=== PATIENT | male | born 1955 | race Caucasian/White ===

== ENCOUNTER → 2019-01-31 | Outpatient (CLI) | payer OTHER ==
--- NOTE | 2019-01-31 20:59 | CONS ---
CONSULTATION REASON FOR CONSULTATION: Sleep apnea. This 63-year-old male patient is coming in for sleep apnea evaluation. The patient used to live in [place] and currently is back in [place]. He was diagnosed having Parkinson's disease under the care of Dr. Mayte Branham. He is on a combination of Mirapex and Sinemet regarding his Parkinson's disease. He has no dementia. He has resting tremors. No issues with mobility or falls. He has been feeling fatigued. He goes to bed around 1 a.m. and wakes up at 6:30 a.m. in the morning, averaging around 5- 6 hours of sleep. He does not take any naps during the day. Occasionally he dozes off during the day, especially if it is a quite afternoon. He snores. He has been told that he moans during the night, and his cannot sleep due to him snoring and moaning. He has been having this issue for many years. No sleeptalking. No restlessness in the lower extremities. Denies waking up gasping for air. No choking. No palpitations or heartburn. PAST MEDICAL HISTORY: Includes Parkinson's disease and hypertension. PAST SURGICAL HISTORY: Includes cholecystectomy and tonsillectomy. DRUG ALLERGIES: NOT KNOWN. OUTPATIENT MEDICATION LIST: Includes Mirapex, Sinemet and lisinopril. SOCIAL HISTORY: He smokes a cigar. No history of alcoholism. No history of IV drugs. FAMILY HISTORY: Mother with obstructive sleep apnea in addition to coronary artery disease and diabetes mellitus. Father with dementia. REVIEW OF SYSTEMS: Fourteen-point review of systems was done. Positive findings are all mentioned in the history of present illness. He has no insomnia. No symptoms to suggest any violent behavior or aggressive behavior at night time. As such, possibility of REM behavioral disorder is less likely. No symptoms to suggest restless legs syndrome. He does not kick at night time. He does not fall asleep while driving. Occasional naps during the day. He sleeps on his side. No TV in the bedroom. Weight is stable at around 265 to 270. PHYSICAL EXAMINATION: BP is 144/76, pulse 68, respirations 16. Weight is 273, height 5 feet 8 inches, BMI is 46.9. Neck size is 18-1/2 inches. Temperature 97.7. Saturation 97% on room air. GENERAL APPEARANCE: Calm, comfortable. Head is atraumatic, normocephalic. NECK: Supple. There is no JVD. No goiter or neck masses. Mallampati class IV. LUNGS: Clear to auscultation. HEART: Heart sounds are regular rate and rhythm. Normal S1, S2. No S3, S4. No murmurs. ABDOMEN: Soft, nontender. EXTREMITIES: No edema. No cyanosis or clubbing. NEUROLOGIC: Alert and oriented x3. No focal neurological deficits. PSYCHIATRIC: Negative for anxiety or depression. IMPRESSION: 1. Loud snoring. 2. Hypersomnia; [place] score of 16. 3. Obesity; body mass index of 46.9. 4. Parkinson's disease. 5. Hypertension. PLAN: 1. Weight loss. 2. Proceed with a screening polysomnogram. Conditions that can affect the patient's sleep quality in Parkinson's disease include sleep apnea, restless legs syndrome and REM behavioral disorder. Nevertheless, in this patient the main concern is obstructive sleep apnea. 3. Implement good sleep hygiene measures. 4. Extend sleep hours to an average of 7 hours per night, if possible. 5. Will make further recommendations based on results of the sleep study. MMODL / IJN: [id number] /
== END ==
LOC: SLEEP 13:33
PROVIDERS: ATTEND Internal Medicine Critical Care Medicine
DX: G47.10 Hypersomnia, unspecified (principal); R06.83 Snoring; E66.9 Obesity, unspecified; G20 Parkinson's disease; I10 Essential (primary) hypertension; F17.290 Nicotine dependence, other tobacco product, uncomplicated; Z79.899 Other long term (current) drug therapy; Z90.49 Acquired absence of other specified parts of digestive tract; Z68.42 Body mass index [BMI] 45.0-49.9, adult; Z90.89 Acquired absence of other organs
CPT/HCPCS: 99211

== ENCOUNTER → 2019-10-19 | Outpatient (CLI) | payer BC ==
--- NOTE | 2019-10-19 14:51 | PN ---
PROGRESS NOTE DATE OF SERVICE: 10/19/2019 A 64-year-old gentleman who has been [facility] for treatment of obstructive sleep apnea-hypopnea syndrome. Recently, patient had home sleep apnea test which showed moderate obstructive sleep apnea with apnea-hypopnea index 22 with oxygen desaturation to 73%. The patient underwent CPAP titration and on the pressure 9, respiration was normalized. Then I prescribed the patient's CPAP unit. He received the unit and started to use it and basically most of the night patient is able to use it without significant problem. Sometimes he feels that his nasal mask may be not 100% fitted. Today is his first visit after he started to use CPAP equipment, he feels better with the machine. He likes machine. He sleeps better at night and feel better during the day. [place] Sleepiness Scale today is 5. I checked CPAP unit. CPAP pressure is 9 cm of water, usage 29/30 nights and 22/30 nights more than 4 hours with average usage 5.7 hours which is good compliance. Leak is 25 L/minute. Apnea-hypopnea index is only 0.7, which is absolutely perfect. MEDICATIONS: Sinemet, lisinopril, hydrochlorothiazide, Celexa, Xanax, Advil as needed. PHYSICAL EXAM: Patient in no distress, BP 160/82, HR 64, RR 16, weight 260.0, temp 97, oxygen saturation at room air 96%. OROPHARYNX: Low position of soft palate, Mallampati 3. ABDOMEN: Slightly obese. EXTREMITIES: Some tremor of fingers. NECK: Supple, no JVD. Thyroid is not palpable. LUNGS: Clear to percussion and to auscultation. Good air exchange. No wheezing or rhonchi. HEART: S1, S2 regular. No murmurs, gallops, or rubs. STATION ENGINEER MAIN LINE: Awake, alert, and oriented X3. Cranial nerves 2 to 7 intact. There is no fasciculation or atrophy. noted. No focal deficits observed. IMPRESSION: 1. Obstructive sleep apnea-hypopnea syndrome on full control with CPAP. Patient demonstrated great compliance with treatment benefitting from treatment. 2. History of Parkinson's disease. 3. Obesity. 4. Hypertension. PLAN: 1. Patient will continue to use CPAP equipment every night for the whole night. 2. I will maintain all necessary prescriptions including mask, tube, filters. 3. Prescription to try nasal pillow mask. 4. Losing weight. 5. No driving if feeling sleepiness. Thank you very much for allowing me to participate in the management of your patient. Sincerely, Prashanth Samuel MD, PhD, FAASM Diplomat of [place] [employer] [place] [employer] Store Protection Specialist of [facility] [place] MMKRISTIN / HARRY: [id number] /
== END | disposition home or self-care (01) ==
LOC: SLEEP 13:09
PROVIDERS: ATTEND Internal Medicine
DX: G47.33 Obstructive sleep apnea (adult) (pediatric) (principal); E66.9 Obesity, unspecified; I10 Essential (primary) hypertension; Z86.69 Personal history of other diseases of the nervous system and sense organs; Z79.899 Other long term (current) drug therapy

== ENCOUNTER 2020-10-11 16:34 | Observation (INO) | payer BC, MEDICARE, OTHER ==
--- NOTE | 2020-10-11 17:23 | XR ---
EXAMINATION TYPE: XR elbow complete LT DATE OF EXAM: 10/11/2020 COMPARISON: NONE HISTORY: Elbow pain TECHNIQUE: 3 views FINDINGS: There is spurring on the olecranon process of the ulna. There is soft tissue swelling over the olecranon process. There is probably a nondisplaced fracture of the olecranon process spur. There is no evidence of elbow joint effusion. Elbow joint spaces are fairly normal. IMPRESSION: Large olecranon process spur formation with probable nondisplaced fracture. Soft tissue s welling.
[2020-10-11] MEDS ORDERED: NALOXONE 0.4 MG/ML 1 ML VIAL IV PRN (18:07)
--- NOTE | 2020-10-11 18:07 | ED ---
Upper Extremity HPI - General Chief Complaint: Extremity Injury, Upper Stated Complaint: L Elbow Injury Time Seen by Provider: 10/11/20 16:51 Source: patient Mode of arrival: ambulatory Limitations: no limitations - History of Present Illness Initial Comments: This is a 65-year-old male with a history of Parkinson's disease who fell about a week ago when he has left elbow he was found by his family doctor to have a fracture of the spur on his olecranon. He did have been draining since then intermittently neck a better in spite of antibiotics. He denies any overt fevers chills or sweats he does have persistent however swelling to the area with intermittent episodes of drainage. He was sent in for evaluation by orthopedics. No other injury reported this time no other complaints MD Complaint: Injury to:: left, elbow - Related Data Allergies Allergy/AdvReac Type Severity Reaction Status Date / Time No Known Allergies Allergy Verified 10/11/20 16:48 Review of Systems ROS Statement: Those systems with pertinent positive or pertinent negative responses have been documented in the HPI. ROS Other: All systems not noted in ROS Statement are negative. Past Medical History Past Medical History: Hypertension Additional Past Medical History / Comment(s): parkinsons History of Any Multi-Drug Resistant Organisms: None Reported Past Surgical History: Cholecystectomy, Hernia Repair Past Psychological History: Anxiety Smoking Status: Current some day smoker Past Alcohol Use History: Daily Past Drug Use History: None Reported General Exam - General Exam Comments Initial Comments: this is a well-developed well-nourished awake alert oriented 3 male Limitations: no limitations General appearance: alert, in no apparent distress Head exam: Present: atraumatic, normocephalic, normal inspection Eye exam: Present: normal appearance, PERRL, EOMI. Absent: scleral icterus, conjunctival injection, periorbital swelling ENT exam: Present: normal exam, mucous membranes moist Neck exam: Present: normal inspection, full ROM. Absent: tenderness, meningismus, lymphadenopathy Respiratory exam: Absent: respiratory distress, wheezes, rales, rhonchi, stridor Cardiovascular Exam: Present: regular rate, normal rhythm. Absent: systolic murmur, diastolic murmur, rubs, gallop, clicks GI/Abdominal exam: Present: soft, normal bowel sounds. Absent: distended, tenderness, guarding, rebound, rigid Extremities exam: Present: full ROM, tenderness (gemmation left elbow reveals a erythematous area with swelling over the olecranon in the left there is open wounds no drainage at this time there is fluctuance about the area increased localized temperature and erythema no lymphadenopathy proximal however no tenderness palpation of the axilla. This), normal capillary refill. Absent: pedal edema, joint swelling, calf tenderness Back exam: Present: normal inspection Neurological exam: Present: alert, oriented X3, CN II-XII intact Psychiatric exam: Present: normal affect, normal mood Skin exam: Present: warm, dry, intact, normal color. Absent: rash Course Vital Signs 10/11/20 16:43 Temperature 98.1 F Pulse Rate 68 Respiratory 18 Rate Blood Pressure 182/81 O2 Sat by Pulse 97 Oximetry Medical Decision Making - Medical Decision Making I did discuss the case with the patient and his as well as with Suleiman urbano covering for Dr. Cabrera and also with Yvrose who is covering Dr. Beasley patient be admitted with ID consultationconsultation. - Radiology Data Radiology results: report reviewed (x-ray was reviewed there is evidence of a spur that appears to have a nondisplaced fracture.), image reviewed Disposition Clinical Impression: Olecranon bursitis, left elbow, Left elbow fracture, Failure of outpatient treatment, Cellulitis of left elbow Disposition: ADMITTED IP TO THIS HOSP Condition: Fair Referrals: Obed Johnson DO [Primary Care Provider] - 1-2 days
[2020-10-11] MEDS ORDERED: PIPERACILLIN-TAZOBACTAM 3.375 GM in SODIUM CHLORIDE 0.9% 100 ML IVPB STA (18:13)
[2020-10-11] MEDS ORDERED: SODIUM CHLORIDE 0.9% 1,000 ML IV SCH (18:15)
[2020-10-11 19:24] LABS: Basophils # (A) 0.1 k/uL (0-0.2); Basophils % (A) 1 %; Eosinophils # (A) 0.2 k/uL (0-0.7); Eosinophils % (A) 2 %; HCT 45.6 % (39.0-53.0); HGB 15.3 gm/dL (13.0-17.5); Lymphocytes # (A) 1.7 k/uL (1.0-4.8); Lymphocytes % (A) 20 %; MCH 30.4 pg (25.0-35.0); MCHC 33.5 g/dL (31.0-37.0); MCV 90.7 fL (80.0-100.0); Mean Platelet Volume 7.1; Monocytes # (A) 0.5 k/uL (0-1.0); Monocytes % (A) 6 %; Neutrophils # (A) 5.9 k/uL (1.3-7.7); Neutrophils % (A) 70 %; Platelet Count 203 k/uL (150-450); RBC 5.03 m/uL (4.30-5.90); RDW 13.2 % (11.5-15.5); WBC 8.5 k/uL (3.8-10.6)
--- NOTE | 2020-10-11 19:30 | P.CNOR ---
History of Present Illness - [facility] Consult date: 10/11/20 Consult reason: other (Left elbow olecranon bursitis) History of present illness: Patient is a 65-year-old male who presented to [facility] emergency room for evaluation of the left elbow. Apparently the patient had a fall and hit his left elbow earlier this week. There was a noted abrasion at that time, within a day or 2 he noticed significant swelling over the left elbow. He was evaluated by his internal medicine doctor, they did actually contact our office regarding this patient. Due to the description that we were provided, we recommended the patient to be evaluated in the emergency room for further workup. I was contacted by the emergency room staff regarding the patient. Dr. Weeks and I both presented to the emergency room to evaluate the patient. Patient's was available at bedside. The patient denies any fevers or chills, any shortness of breath, chest pain. Patient and his both state that it is been draining over the last few days, more of a bloody drainage. There is no obvious purulence present. They deny significant erythema surrounding the elbow. Patient has had no problems with the elbow in the past. Review of Systems Constitutional: Reports as per [facility] Past Medical History Past Medical History: Hypertension Additional Past Medical History / Comment(s): parkinsons History of Any Multi-Drug Resistant Organisms: None Reported Past Surgical History: Cholecystectomy, Hernia Repair Past Psychological History: Anxiety Smoking Status: Current some day smoker Past Alcohol Use History: Daily Past Drug Use History: None Reported Medications and Allergies Home Medications Medication Instructions Recorded Confirmed Type ALPRAZolam [Xanax] 0.5 mg PO BID PRN 10/11/20 10/11/20 History Carbidopa-Levodopa 25-100 mg 1 tab PO QID 10/11/20 10/11/20 History [Sinemet 25-100] Citalopram Hydrobromide [CeleXA] 40 mg PO HS@219910/11/20 10/11/20 History L.acidoph,Paracasei, B.lactis 1 cap PO HS@219910/11/20 10/11/20 History [Probiotic] hydroCHLOROthiazide 25 mg PO HS@0 10/11/20 10/11/20 History lisinopriL 40 mg PO HS@219910/11/20 10/11/20 History rOPINIRole HCL [Requip] 0.25 mg PO BID@1000,2200 10/11/20 10/11/20 History Allergies Allergy/AdvReac Type Severity Reaction Status Date / Time No Known Allergies Allergy Verified 10/11/20 18:19 Physical Examination Left upper extremity: Small abrasion over the olecranon bursa is noted, there is minimal soft tissue swelling present in that area. There is mild erythema of the skin There is no obvious drainage appreciated, no obvious purulence, no fall odor Patient is able to flex the elbow past 90 with minimal discomfort, he has full extension He has minimal tenderness with palpation over the olecranon bursa He is nontender with palpation throughout the forearm, hand or wrist. He has full range of motion with regards to wrist extension, wrist flexion and finger intrinsics Sensory exam to light touch throughout the extremity is intact Radial and ulnar pulses are 2+ Results - Diagnostic results Elbow x-ray: report reviewed, image reviewed (Images were reviewed of the left elbow, no obvious fractures or dislocations are present. There is a osteophyte noted over the olecranon, possible fracture involving this.) Assessment and Plan Assessment: Traumatic left elbow olecranon bursitis Possible septic olecranon bursitis Parkinson's disease Other medical comorbidities Plan: Dr. Weeks was available at bedside today to discuss treatment options with elias herrera and patient's family. labs have been ordered to further evaluate possible infection of the olecranon bursa involving the left elbow. We will await lab results, recheck on 10/12/2020 Patient will be made nothing by mouth after midnight prophylactically Infectious disease consult, appreciate recommendations Internal medicine recommendations Nothing by mouth after midnight GI and DVT prophylaxis per primary medical service Further recommendations to follow Time with Patient: Less than 30
[2020-10-11 19:37] LABS: ALT 8 U/L (4-49); AST 27 U/L (17-59); African American GFR (CKD) >90 (>60 ml/min/1.73 sqM); Albumin 4.6 g/dL (3.5-5.0); Alkaline Phosphatase 65 U/L (38-126); Anion Gap 9 mmol/L; Blood Urea Nitrogen 17 mg/dL (9-20); C Reactive Protein <5.0 mg/L (<10.0); Calcium 10.1 mg/dL (8.4-10.2); Carbon Dioxide 28 mmol/L (22-30); Chloride 102 mmol/L (98-107); Creatine Kinase 53 U/L (55-170); Glucose 115 mg/dL (74-99); Non-African American GFR(CKD) >90 (>60 ml/min/1.73 sqM); Potassium 4.1 mmol/L (3.5-5.1); Sodium 139 mmol/L (137-145); Total Protein 7.6 g/dL (6.3-8.2)
[2020-10-11 20:56] LABS: Erythrocyte Sedimentation Rate 5 mm/hr (0-15)
[2020-10-11] MEDS ORDERED: ALPRAZolam 0.5 MG TAB PO PRN (21:29)
[2020-10-11] MEDS: CARBIDOPA-LEVODOPA 25-100 MG 1 EACH TAB PO SCH (21:58)
[2020-10-11] MEDS ORDERED: hydroCHLOROthiazide 25 MG TAB PO SCH (22:00)
[2020-10-11] MEDS ORDERED: CITALOPRAM HYDROBROMIDE 20 MG TAB PO SCH (22:00)
[2020-10-11] MEDS ORDERED: ONDANSETRON 4 MG/2 ML VIAL IVP PRN (22:00)
[2020-10-11] MEDS ORDERED: LACTOBACILLUS ACIDOPH & BULGAR 1 EACH PACKET PO SCH (22:00)
[2020-10-11] MEDS ORDERED: lisinopriL 20 MG TAB PO SCH (22:00)
[2020-10-11] MEDS ORDERED: ACETAMINOPHEN TAB 325 MG TAB PO PRN (22:00)
[2020-10-12 07:57] VITALS: BP 129/73; PULSE 59; RESP 18; TEMP 98.1
[2020-10-12] MEDS: CARBIDOPA-LEVODOPA 25-100 MG 1 EACH TAB PO SCH (08:24)
[2020-10-12 10:20] LABS: Basophils # (A) 0.06 X 10*3/uL (0.00-0.10); Basophils % (A) 0.9 %; Eosinophils # (A) 0.24 X 10*3/uL (0.04-0.35); Eosinophils % (A) 3.4 %; HGB 13.4 g/dL (13.0-17.0); Lymphocytes # (A) 1.88 X 10*3/uL (0.90-5.00); Lymphocytes % (A) 26.7 %; MCH 30.2 pg (27.0-32.0); MCHC 32.7 g/dL (32.0-37.0); MCV 92.3 fL (80.0-97.0); Mean Platelet Volume 10.7 fL (9.5-12.2); Monocytes % (A) 11.4 %; Neutrophils # (A) 4.05 X 10*3/uL (1.80-7.70); Neutrophils % (A) 57.5 %; Platelet Count 199 X 10*3/uL (140-440); RBC 4.44 X 10*6/uL (4.40-5.60); RDW 12.8 % (11.5-14.5); WBC 7.04 X 10*3/uL (4.50-10.00)
[2020-10-12 10:25] LABS: African American GFR (CKD) 108.6 (60.0-200.0); Anion Gap 5.7 mmol/L (4.00-12.00); BUN/Creat Ratio 22.5 Ratio (12.00-20.00); Calcium 9.2 mg/dL (8.7-10.3); Carbon Dioxide 27.3 mmol/L (21.6-31.8); Non-African American GFR(CKD) 93.7 (60.0-200.0); Potassium 3.9 mmol/L (3.5-5.5)
--- NOTE | 2020-10-12 11:36 | P.PN ---
Subjective Progress Note Date: 10/12/20 Principal diagnosis: Left elbow olecranon bursitis Patient evaluated at bedside today, he is resting comfortably. He notes no worsening symptoms of left elbow. He denies any fevers or chills. He denies any headaches, lightheadedness, chest pain or shortness of breath. Objective - Vital Signs Vital signs: Vital Signs Temp 98.1 F 10/12/20 07:56 Pulse 59 L 10/12/20 07:56 Resp 18 10/12/20 08:00 BP 129/73 10/12/20 07:56 Pulse Ox 95 10/12/20 07:56 Intake & Output 10/11/20 10/12/20 10/12/20 18:59 06:59 18:59 Intake Total 260 200 Balance 260 200 Weight 120.202 kg 120.202 kg Intake: Intake, IV Titration 260 Amount Piperacillin-Tazobactam 3 100 .375 gm In Sodium Chloride 0.9% 100 ml @ 200 mls/hr IVPB ONCE STA Rx#:[id number] Sodium Chloride 0.9% 1, 160 000 ml @ 20 mls/hr IV . Q24H MATTHEW Rx#:[id number] Oral 200 Other: Voiding Method Toilet Toilet # Voids 2 - Exam Left elbow: No significant drainage appreciated from the elbow, the abrasion is well healing. The erythema has improved surrounding the elbow. Range of motion is intact with regards to extension and flexion of the elbow along with forearm pronation and supination. Sensation to light touch is intact at the extremity, radial and ulnar pulses are 2+ - Labs CBC & Chem 7: 10/12/20 05:31 10/12/20 05:31 Labs: Abnormal Lab Results - Last 24 Hours (Table) 10/11/20 10/12/20 Range/Units 18:59 05:31 BUN/Creatinine Ratio 22.50 H (12.00-20.00) Ratio Glucose 115 H (74-99) mg/dL Creatine Kinase 53 L (55-170) U/L Assessment and Plan Assessment: Traumatic left elbow olecranon bursitis Parkinson's disease Other medical comorbidities Plan: Dr. Weeks and myself for both able to evaluate the patient today at bedside. Patient's physical exam findings along with lab findings reveal no acute infection of the left elbow olecranon bursa. No orthopedic surgical intervention recommended at this time Prescription for Keflex 500 mg 4 times a day for 10 days will be provided prophylactically Heavily padded bandage and Jason wrap were applied at bedside Patient was instructed to contact office on Wednesday to make appointment follow-up with Dr. Weeks on Wednesday for recheck of the elbow Stable for discharge home today Time with Patient: Less than 30
--- NOTE | 2020-10-12 18:31 | HP ---
HISTORY AND PHYSICAL HISTORY AND PHYSICAL/ DISCHARGE SUMMARY: DATE OF SERVICE: 10/12/2020. CHIEF COMPLAINTS: Pain and swelling of the left elbow injury. HISTORY OF PRESENT ILLNESS: This 65-year-old gentleman with a past history of hypertension, Parkinson's, history of cholecystectomy, being followed by Dr. Johnson in the outpatient setting, apparently slipped and fell a week ago and injured the left elbow. Because of pain, increased swelling, the patient came to [facility] and was admitted for further evaluation and treatment. The elbow x-ray showed large olecranon process spur formation with probable nondisplaced fracture and soft tissue swelling also. Orthopedic surgery Dr. Weeks has seen the patient and recommended a course of empiric antibiotics and outpatient followup. Traumatic left elbow olecranon bursitis is a concern at this time. There is no history of fever, rigors. No history of headache, loss of consciousness or seizures at this time. PAST MEDICAL HISTORY: History of hypertension, Parkinson's, cholecystectomy. MEDICATIONS: Home medications are: Lisinopril, hydrochlorothiazide, probiotics, Celexa, Requip, Sinemet, Xanax. FAMILY HISTORY: No history of heart disease or strokes in the family. SOCIAL HISTORY: History of anxiety, smoking. ALLERGIES: None. REVIEW OF SYSTEMS: ENT: No diminished vision. No diminished hearing. CARDIOVASCULAR system: No angina or palpitations. RESPIRATORY: As mentioned earlier. GI: As mentioned earlier. no dysuria. ALLERGY/IMMUNOLOGY: No asthma or hayfever. MUSCULOSKELETAL: As mentioned earlier. HEMATOLOGY/ONCOLOGY: No history of anemia. ENDOCRINE: No history of diabetes or hypothyroidism. CONSTITUTIONAL: As mentioned earlier. DERMATOLOGY: Negative. RHEUMATOLOGY: Negative. PSYCHIATRIC: As mentioned earlier. PHYSICAL EXAMINATION: Alert and oriented times three. Pulse 59, blood pressure 120/73, respiration 18, temperature 98.1, pulse ox 95 percent on room air. HEENT is conjunctivae normal. Oral mucosa moist. NECK is no jugular venous distention. No carotid bruit. No lymph node enlargement. CARDIOVASCULAR: S1, S2 muffled. No S3, no S4. RESPIRATORY: Breath sounds diminished in the bases. No rhonchi. No crackles. ABDOMEN: Soft, obese, nontender. No mass palpable. LEGS: No edema. No swelling. NERVOUS SYSTEM: Higher functions as mentioned earlier. Moves all 4 limbs. Diffuse tremors and features of Parkinson's also present. SKIN: No ulcer, rash, or bleeding. JOINTS: Essential left elbow joint painful and some erythema. Left olecranon bursitis also present. LABS: Are at this time shows CBC within normal limits. Sodium 137. ASSESSMENT: 1. Left olecranon bursitis, traumatic and also possibly incomplete fracture of the olecranon with spur formation. 2. Hypertension. 3. Parkinson's. 4. Cholecystectomy. 5. History of anxiety. 6. History of nicotine dependence. 7. FULL CODE. RECOMMENDATIONS AND DISCUSSION: This 65-year-old gentleman presented with multiple medical issues, we will monitor the patient closely, continue the current medications, management and symptomatic treatment. Orthopedic has seen the patient and recommended outpatient followup and Keflex 500 mg q.6h for 10 days. We will continue to monitor. Closely follow with Dr. Johnson. Guarded prognosis. Further recommendations to follow. The patient will follow with Dr. Weeks. MMPARAGL / NEILN: [id number] /
== END 2020-10-12 12:40 | disposition home or self-care (01) ==
LOC: EC 16:34 → 6NMEDSUR 18:07
PROVIDERS: ADMIT Hospitalist; ATTEND Hospitalist
DX: M70.22 Olecranon bursitis, left elbow (principal); M25.722 Osteophyte, left elbow; G20 Parkinson's disease; I10 Essential (primary) hypertension; F41.9 Anxiety disorder, unspecified; F17.200 Nicotine dependence, unspecified, uncomplicated; Z90.49 Acquired absence of other specified parts of digestive tract; Z79.899 Other long term (current) drug therapy; W01.0XXA Fall on same level from slipping, tripping and stumbling without subsequent striking against object, initial encounter
CPT/HCPCS: 96366; 96365; 99284; 80053; 80048; 85652; 82550; 83605; 85025 ×2; 86140; 87040; 87635; 73080; G0378 ×2; J2543

== ENCOUNTER → 2024-06-19 | Outpatient (CLI) | payer MEDICARE, OTHER ==
--- NOTE | 2024-06-19 11:00 | XR ---
EXAMINATION TYPE: XR chest 2V DATE OF EXAM: 06/19/2024 COMPARISON: NONE TECHNIQUE: PA and lateral views submitted. HISTORY: Presurgical testing FINDINGS: The lungs are clear and there is no pneumothorax, pleural effusion, or focal pneumonia. Heart size normal and no overt failure. Osseous structures demonstrate hypertrophic and degenerative changes of the spine. AC joint arthropathy. Calcified hilar lymph nodes. IMPRESSION: 1. No acute process. [facility], , 06/19/2024 10:58 AM
[2024-06-19 15:14] LABS: Basophils # (A) 0.05 X 10*3/uL (0.00-0.10); Basophils % (A) 0.8 %; Eosinophils # (A) 0.09 X 10*3/uL (0.04-0.35); Eosinophils % (A) 1.5 %; HCT 44.8 % (39.6-50.0); HGB 14.5 g/dL (13.0-17.0); Lymphocytes # (A) 1.19 X 10*3/uL (0.90-5.00); Lymphocytes % (A) 19.3 %; MCH 29.3 pg (27.0-32.0); MCHC 32.4 g/dL (32.0-37.0); MCV 90.5 FL (80.0-97.0); Mean Platelet Volume 9.8 FL (9.5-12.2); Monocytes # (A) 0.52 X 10*3/uL (0.20-1.00); Monocytes % (A) 8.4 %; NRBC Per 100 WBC 0 X 10*3/uL (0.00-0.01); Neutrophils # (A) 4.31 X 10*3/uL (1.80-7.70); Neutrophils % (A) 69.8 %; Platelet Count 203 X 10*3/uL (140-440); RBC 4.95 X 10*6/uL (4.40-5.60); RDW 12.9 % (11.5-14.5); WBC 6.17 X 10*3/uL (4.50-10.00)
[2024-06-19 15:19] LABS: BUN/Creat Ratio 31.71 Ratio (12.00-20.00); Blood Urea Nitrogen 22.2 mg/dL (9.0-27.0); Calcium 9.4 mg/dL (8.7-10.3); Carbon Dioxide 28.3 mmol/L (21.6-31.8); Chloride 106 mmol/L (96-109); Glucose 100 mg/dL (70-110); Potassium 4.7 mmol/L (3.5-5.5); Sodium 142 mmol/L (135-145)
== END | disposition home or self-care (01) ==
LOC: LABPAT 09:58
PROVIDERS: ATTEND Orthopaedic Surgery
DX: Z01.818 Encounter for other preprocedural examination
CPT/HCPCS: 36415; 71046; 80048; 85025; 93005

== ENCOUNTER 2024-06-23 10:09 | Inpatient (IN) | payer MEDICARE, OTHER ==
[2024-06-20 11:06] VITALS: BMI 34.5
--- NOTE | 2024-06-22 08:35 | P.HPOR ---
History of Present Illness H&P Date: 06/22/24 Chief Complaint: Right knee pain, swelling, and drainage Patient is a 68-year-old retired male who presents with a 6 week history of drainage and swelling about the anterior aspect of his right knee. He notes he was doing a lot of kneeling. He tried several courses of oral antibiotics with persistence of his drainage. He denies fevers or chills. Review of Systems Per HPI Past Medical History Past Medical History: Cancer, Hypertension, Sleep Apnea/CPAP/BIPAP Additional Past Medical History / Comment(s): swelling and drainage rt knee, parkinson's,uses cpap,rash to groin area,skin basal cell History of Any Multi-Drug Resistant Organisms: None Reported Past Surgical History: Cholecystectomy, Hernia Repair Additional Past Surgical History / Comment(s): umbilical hernia Past Anesthesia/Blood Transfusion Reactions: No Reported Reaction, Motion Sickness Smoking Status: Current some day smoker - Past Family History Mother Family Medical History: No Reported History Father Family Medical History: Cancer Additional Family Medical History / Comment(s): skin Medications and Allergies Home Medications Medication Instructions Recorded Confirmed Type ALPRAZolam [Xanax] 0.5 mg PO BID PRN 10/11/20 06/20/24 History Citalopram Hydrobromide [CeleXA] 40 mg PO HS@2200 10/11/20 06/20/24 History hydroCHLOROthiazide 12.5 mg PO HS@2200 10/11/20 06/20/24 History lisinopriL 40 mg PO HS@2200 10/11/20 06/20/24 History Carbidopa/Levodopa 1 tab PO QID 06/20/24 06/20/24 History [Carbidopa/Levodopa 25-250 Tab] Cholecalciferol [Vitamin D3 (25 250 mcg PO DAILY 06/20/24 06/20/24 History Mcg = 1000 Iu)] Entacapone [Comtan] 200 mg PO QID 06/20/24 06/20/24 History Famotidine [Pepcid] 40 mg PO HS 06/20/24 06/20/24 History Garlic 2,000 mg PO DAILY 06/20/24 06/20/24 History L.acidoph,Paracasei, B.lactis 2 each PO DAILY 06/20/24 06/20/24 History [Probiotic] Love Your Brain Supp 1 dose PO DAILY 06/20/24 06/20/24 History Pramipexole [Mirapex] 0.5 mg PO TID 06/20/24 06/20/24 History oxyBUTYnin chloride [oxyBUTYnin 5 mg PO HS 06/20/24 06/20/24 History chloride ER] Allergies Allergy/AdvReac Type Severity Reaction Status Date / Time No Known Allergies Allergy Verified 06/20/24 10:39 Physical Examination - Knee right Appearance: other (Erythema and prepatellar swelling along with a 4 x 4 millimeter prepatellar wound with serosanguineous drainage.) Tenderness with palpation: anterior ROM: extension: -10 degrees ROM: flexion: 120 degrees Strength: extension: 5/5 Strength: flexion: 5/5 Results Patient is a well-developed well-nourished approximately 5 foot 10, 240 pounds of endomorphic habitus. HEENT exam is nonfocal, neck supple. He has painless passive motion of his right hip. Straight leg raise is negative. He is tender about the anterior aspect of the right knee. Moderate prepatellar swelling is noted. Collaterals are stable, Manuel is negative, Patrice's is negative. His distal neurovascular exam appears intact in the right lower extremity. - Diagnostic results Knee x-ray: image reviewed (X-rays of the right knee obtained in the office show prepatellar soft tissue swelling.) Assessment and Plan Assessment: Right prepatellar bursitisinfectious Plan: I talked with the patient and his regarding his condition along with treatment options. At this point we will plan to proceed with incision and drainage with irrigation and debridement of his right knee prepatellar bursitis. Risks and benefits were discussed at length. We will obtain cultures and place him on the appropriate antibiotics with infectious disease consultation.
[~2024-06-23 10:09] MED LIST: HYDROmorphone 0.5 MG/0.5 ML SYRINGE IVP PRN; MIDAZOLAM 2 MG/2 ML VIAL IV PRN
[2024-06-23] MEDS: IV FLUID CONTINUATION 1,000 ML IV ONE ×2 (11:03→14:27)
[2024-06-23] MEDS: DEXAMETHASONE SOD PHOSPHATE 4 MG/ML 1 ML VIAL IV ONE (11:12)
[2024-06-23] MEDS: ONDANSETRON 4 MG/2 ML VIAL IVP ONE (11:13)
[2024-06-23] MEDS ORDERED: fentaNYL (PF) 50 MCG/ML 2 ML AMP ONE (11:25)
[2024-06-23] MEDS ORDERED: ePHEDrine 50 MG/ML 1 ML VIAL ONE (11:25)
[2024-06-23] MEDS ORDERED: LIDOCAINE 1% INJ 10MG/ML (20 ML MDV) ONE (11:25)
[2024-06-23] MEDS ORDERED: PROPOFOL 10 MG/ML 20 ML VIAL IV ONE (11:25)
[2024-06-23] MEDS ORDERED: SUCCINYLCHOLINE CHLORIDE 200 MG/10 ML VIAL IV ONE (11:25)
[2024-06-23] MEDS ORDERED: MIDAZOLAM 2 MG/2 ML VIAL ONE (11:25)
[2024-06-23] MEDS: ceFAZolin 3,000 MG in SODIUM CHLORIDE 0.9% IRRIGATIO 3,000 ML IRRIGATION ONE (11:56)
[2024-06-23] MEDS ORDERED: NALOXONE 0.4 MG/ML 1 ML VIAL IV PRN (12:24)
[2024-06-23] MEDS ORDERED: hydrOXYzine pamoate 25 MG CAP PO PRN (12:24)
[2024-06-23] MEDS ORDERED: HYDROcodone/APAP 5-325MG 1 EACH TAB PO PRN (12:24)
[2024-06-23] MEDS ORDERED: HYDROmorphone 0.5 MG/0.5 ML SYRINGE IVP PRN ×2 (12:24)
[2024-06-23] MEDS ORDERED: HYDROcodone/APAP 7.5-325MG 1 EACH TAB PO PRN (12:24)
[2024-06-23] MEDS ORDERED: ONDANSETRON 4 MG/2 ML VIAL IVP PRN (12:24)
[2024-06-23] MEDS ORDERED: MAGNESIUM HYDROXIDE 2,400 MG/30 ML CUP PO PRN (12:24)
--- NOTE | 2024-06-23 12:26 | P.OP ---
Date of Procedure: 06/23/24 Preoperative Diagnosis: Right septic prepatellar bursitis Postoperative Diagnosis: Same Procedure(s) Performed: Incision and drainage/irrigation and debridement right knee septic prepatellar bursitis Anesthesia: RAMY Surgeon: Camilo Weeks Hand Stonecutter #1: Xavier Lion Estimated Blood Loss (ml): 10 Pathology: other (Gram stain and cultures) Condition: stable Disposition: PACU Indications for Procedure: The patient is a 68-year-old male who presents with persistent right knee prepatellar swelling and drainage for the past couple of months despite treatment with oral antibiotics. A discussion of the risks and benefits of operative intervention was made with the patient and his . He opted to proceed. Operative risks include persistence of infection and possible need for subsequent procedures was discussed. Informed consent was obtained. Operative Findings: As below Description of Procedure: The patient was brought to the operating room, and after induction of general anesthesia the right lower extremity was prepped and draped in normal fashion. The tourniquet was inflated to 270 mmHg. A 5 cm incision was then made centered over the right knee prepatellar region including the sinus tract. Skin was incised sharply. Electrocautery was used for hemostasis. Subcutaneous tissues were divided sharply. There was significant prepatellar bursal thickening. Deep cultures were obtained. This tissue was then excised sharply with a scalpel down to the level of the patella. The sinus tract was excised. The wound was copiously irrigated with normal saline. The subcutaneous tissues were reapproximated with simple 2-0 Vicryl sutures. The skin was reapproximated with 3-0 [address] suture[address] I did place a Juvenal drain in the subcutaneous tissues for further drainage. A sterile dressing was applied. The tourniquet was deflated with less than 30 minutes total tachycardia time. The patient was awoken from general anesthesia and transferred to the recovery room in good condition. Blood loss is estimated at 10 cc. No complications were incurred. Sponge and needle counts were correct at the end the case. ELO Ventura assisted during the major components of the case to include positioning, exposure, irrigation and debridement, and closure.
[2024-06-23] MEDS: LACTATED RINGERS 1,000 ML IV SCH (14:29)
[2024-06-23] MEDS: PRAMIPEXOLE 0.5 MG TAB PO SCH (16:47)
[2024-06-23] MEDS: CARBIDOPA-LEVODOPA 25-250 MG 1 EACH TAB PO SCH (17:08)
[2024-06-23] MEDS: ENTACAPONE 200 MG TAB PO SCH (17:08)
--- NOTE | 2024-06-23 19:00 | P.CONS ---
History of Present Illness - Reason for Consult Consult date: 06/23/24 Medical Management Requesting physician: Camilo Weeks - History of Present Illness History of Presenting Illness: Patient is a very pleasant 68-year-old male with a past medical history of Parkinson's disease, hypertension, basal cell carcinoma status post surgical removal, and obstructive sleep apnea CPAP dependent nightly. He is admitted under orthopedic surgery team and is status post incision and drainage with irrigation and debridement of right knee septic prepatellar bursitis. Surgical procedure was completed by Dr. Weeks. We were consulted for medical management throughout hospitalization. Patient was seen and fully evaluated at bedside in room 463 upon return from OR. Patient currently reports mild right knee pain rated 2-3 out of 10 at this time. He denies having any postoperative nausea or vomiting, reports urinating without difficulties, and denies any other complaints at this time. Review of systems: Pertinent positives and negatives as discussed in HPI, a complete review of systems was performed and all other systems are negative. Physical exam: Vital signs reviewed and stable. General: Nontoxic, no distress and appears stated age. Derm: Skin warm and dry, normal coloration for ethnicity. Head: Atraumatic, normocephalic and symmetric. Eyes: EOM's intact, no lid lag, and anicteric sclera Mouth: no lip lesions, mucus membranes moist Cardiovascular: regular rate and rhythm with normal S1S2, no murmur, positive posterior tibial pulses bilaterally, and cap refill < 2 seconds. Lungs: Respirations even, regular, and unlabored on room air. Lungs CTA bilaterally, no rhonchi, no rales, no wheezing, and no accessory muscle usage. Abdominal: soft, nontender to palpation, no guarding, no appreciable organomegaly Ext: No gross muscle atrophy, no edema, no contractures. Movement and sensation intact. Postsurgical dressing in place to right knee. Neuro: Speech clear, face symmetrical and CN II-XII grossly intact with no noted focal neuro deficits. Patient with moderate upper and lower extremity resting tremors and facial tremors secondary to Parkinson's. Psych: Alert and oriented to person, place, time, and situation. Appropriate and pleasant affect. Assessment and Plan of Care: Right knee septic prepatellar bursitis Status post incision and drainage with debridement and irrigation of right knee -Patient is status post incision and drainage with debridement and irrigation. -Follow-up on wound cultures. -Continue Kefzol 2 g every 8 hours. -Infectious disease following, appreciate recommendations. -Continue symptomatic care and pain management. -Fall precautions -Wound/dressing management, DVT prophylaxis, weightbearing, and PT/OT per primary admitting orthopedic surgery team. Parkinson's disease -Continue carbidopa levodopa 25-250 mg tablets 4 times daily along with entacapone 200 mg 4 times daily. -Provide safe and supportive care and assistance as needed. -Maintain fall precautions. Hypertension -Continue daily medication regimen with hydrochlorothiazide 12.5 mg nightly and lisinopril 40 mg nightly. Obstructive sleep apnea -Continue CPAP nightly and while napping. Data and imaging reviewed: Vital signs reviewed. Blood pressure 139/61, heart rate 61, respiratory rate 16, and SpO2 of 94% on room air. Reviewed preoperative labs completed 06/19/2024 showing a WBC count of 6.17, hemoglobin 14.5, platelet count of 203. BMP was unremarkable with exception of mildly elevated BUN at 31.71. DVT prophylaxis per primary admitting orthopedic surgery team, patient currently on aspirin 325 mg daily. Thank you for allowing us to participate in the care of this pleasant patient. Do not hesitate to contact us with questions. Someone can be reached from the [facility] hospitalist group all hours of the day at [phone] or via perfect [employer]. Patient was seen independently by Nurse Practitioner. This document was prepared using [employer] dictation software. Please allow for errors in senior applications engineer while rare they do occur. I reviewed the documentation as provided by the NOA above, who is the original author of this note. I agree with the documented assessment and plan, with the following changes: none Past Medical History Past Medical History: Cancer, Hypertension, Sleep Apnea/CPAP/BIPAP Additional Past Medical History / Comment(s): swelling and drainage rt knee, parkinson's,uses cpap,rash to groin area,skin basal cell History of Any Multi-Drug Resistant Organisms: None Reported Past Surgical History: Cholecystectomy, Hernia Repair Additional Past Surgical History / Comment(s): umbilical hernia Past Anesthesia/Blood Transfusion Reactions: No Reported Reaction, Motion Sickness Smoking Status: Current some day smoker - Past Family History Mother Family Medical History: No Reported History Father Family Medical History: Cancer Additional Family Medical History / Comment(s): skin Medications and Allergies Home Medications Medication Instructions Recorded Confirmed Type ALPRAZolam [Xanax] 0.5 mg PO BID PRN 10/11/20 06/23/24 History Citalopram Hydrobromide [CeleXA] 40 mg PO HS@2200 10/11/20 06/23/24 History hydroCHLOROthiazide 12.5 mg PO HS@2200 10/11/20 06/23/24 History lisinopriL 40 mg PO HS@2200 10/11/20 06/23/24 History Carbidopa/Levodopa 1 tab PO QID 06/20/24 06/23/24 History [Carbidopa/Levodopa 25-250 Tab] Cholecalciferol [Vitamin D3 (25 250 mcg PO DAILY 06/20/24 06/20/24 History Mcg = 1000 Iu)] Entacapone [Comtan] 200 mg PO QID 06/20/24 06/23/24 History Famotidine [Pepcid] 40 mg PO HS 06/20/24 06/23/24 History Garlic 2,000 mg PO DAILY 06/20/24 06/20/24 History L.acidoph,Paracasei, B.lactis 2 each PO DAILY 06/20/24 06/20/24 History [Probiotic] Love Your Brain Supp 1 dose PO DAILY 06/20/24 06/20/24 History Pramipexole [Mirapex] 0.5 mg PO TID 06/20/24 06/23/24 History oxyBUTYnin chloride [oxyBUTYnin 5 mg PO HS 06/20/24 06/23/24 History chloride ER] Allergies Allergy/AdvReac Type Severity Reaction Status Date / Time No Known Allergies Allergy Verified 06/23/24 10:39 Physical Exam Osteopathic Statement: *. No significant issues noted on an osteopathic stru ctural exam other than those noted in the History and Physical/Consult. Vitals: Vital Signs Temp Pulse Pulse Resp BP Pulse Ox 06/23/24 13:45 61 16 139/61 94 L 06/23/24 13:30 58 L 16 148/68 93 L 06/23/24 13:24 57 L 16 149/67 93 L 06/23/24 13:12 59 L 15 152/64 96 06/23/24 12:58 63 16 156/72 97 06/23/24 12:43 63 16 153/67 97 06/23/24 12:28 97 F L 61 16 128/84 99 06/23/24 11:01 97.6 F 67 16 151/67 98 Intake and Output 06/23/24 06/23/24 06/23/24 06:59 14:59 22:59 Intake Total 951 Output Total 20 Balance 931 Intake: IV 951 Output: Estimated Blood Loss 20 Other: Weight 111.5 kg
[2024-06-23] MEDS: CITALOPRAM HYDROBROMIDE 20 MG TAB PO SCH (22:37)
[2024-06-23] MEDS: OXYBUTYNIN XL 5 MG TAB.ER.24 PO SCH (22:37)
[2024-06-23] MEDS: SENNOSIDES-DOCUSATE SODIUM 1 EACH TAB PO SCH (22:37)
[2024-06-23] MEDS: FAMOTIDINE 20 MG TAB PO SCH (22:37)
[2024-06-23] MEDS: lisinopriL 20 MG TAB PO SCH (23:00)
[2024-06-23] MEDS: hydroCHLOROthiazide 12.5 MG CAP PO SCH (23:00)
--- NOTE | 2024-06-23 23:03 | P.CONS ---
History of Present Illness - Reason for Consult Consult date: 06/23/24 ID management septic right knee bursitis Requesting physician: Xavier Lion - Chief Complaint Right knee swelling and drainage x weeks - History of Present Illness Patient is a 68-year-old male with a past medical history significant for hypertension sleep apnea Parkinson disease basal cell skin cancer in this patient has been dealing with right knee swelling and drainage for couple of weeks now that apparently has been cultured in the outpatient setting and has been treated with multiple courses of oral Keflex without any improvement subsequently patient has been brought to the hospital diagnosed with a right knee septic prepatellar bursitis status post I&D irrigation debridement and deep culture patient was started on cefazolin 2 g every 8 hours infectious disease was consulted for further management of antibiotic therapy, patient denies high- grade fever or any chills has been complaining of mostly swelling and drainage to the right knee area with mild dull aching pain without any radiation Review of Systems Positive point and negatives has been mentioned in the HPI, complete review of systems was performed and all other systems are negative Past Medical History Past Medical History: Cancer, Hypertension, Sleep Apnea/CPAP/BIPAP Additional Past Medical History / Comment(s): swelling and drainage rt knee, parkinson's,uses cpap,rash to groin area,skin basal cell History of Any Multi-Drug Resistant Organisms: None Reported Past Surgical History: Cholecystectomy, Hernia Repair Additional Past Surgical History / Comment(s): umbilical hernia Past Anesthesia/Blood Transfusion Reactions: No Reported Reaction, Motion Sickness Smoking Status: Current some day smoker - Past Family History Mother Family Medical History: No Reported History Father Family Medical History: Cancer Additional Family Medical History / Comment(s): skin Medications and Allergies Home Medications Medication Instructions Recorded Confirmed Type ALPRAZolam [Xanax] 0.5 mg PO BID PRN 10/11/20 06/23/24 History Citalopram Hydrobromide [CeleXA] 40 mg PO HS@219910/11/20 06/23/24 History hydroCHLOROthiazide 12.5 mg PO HS@219910/11/20 06/23/24 History lisinopriL 40 mg PO HS@219910/11/20 06/23/24 History Carbidopa/Levodopa 1 tab PO QID 06/20/24 06/23/24 History [Carbidopa/Levodopa 25-250 Tab] Cholecalciferol [Vitamin D3 (25 250 mcg PO DAILY 06/20/24 06/20/24 History Mcg = 1000 Iu)] Entacapone [Comtan] 200 mg PO QID 06/20/24 06/23/24 History Famotidine [Pepcid] 40 mg PO HS 06/20/24 06/23/24 History Garlic 2,000 mg PO DAILY 06/20/24 06/20/24 History L.acidoph,Paracasei, B.lactis 2 each PO DAILY 06/20/24 06/20/24 History [Probiotic] Love Your Brain Supp 1 dose PO DAILY 06/20/24 06/20/24 History Pramipexole [Mirapex] 0.5 mg PO TID 06/20/24 06/23/24 History oxyBUTYnin chloride [oxyBUTYnin 5 mg PO HS 06/20/24 06/23/24 History chloride ER] Allergies Allergy/AdvReac Type Severity Reaction Status Date / Time No Known Allergies Allergy Verified 06/23/24 10:39 Physical Exam Vitals: Vital Signs Temp Pulse Pulse Resp BP Pulse Ox 06/23/24 13:45 61 16 139/61 94 L 06/23/24 13:30 58 L 16 148/68 93 L 06/23/24 13:24 57 L 16 149/67 93 L 06/23/24 13:12 59 L 15 152/64 96 06/23/24 12:58 63 16 156/72 97 06/23/24 12:43 63 16 153/67 97 06/23/24 12:28 97 F L 61 16 128/84 99 06/23/24 11:01 97.6 F 67 16 151/67 98 Intake and Output 06/22/24 06/23/24 06/23/24 22:59 06:59 14:59 Intake Total 951 Output Total 20 Balance 931 Intake: IV 951 Output: Estimated Blood Loss 20 Other: Weight 111.5 kg GENERAL DESCRIPTION: Elderly male lying in bed, no distress. No tachypnea or accessory muscle of respiration use. HEENT: Shows Pallor , no scleral icterus. Oral mucous membrane is dry. No pharyngeal erythema or thrush NECK: Trachea central, no thyromegaly. LUNGS: Unlabored breathing. Clear to auscultation anteriorly. No wheeze or crackle. HEART: S1, S2, regular rate and rhythm. No loud murmur ABDOMEN: Soft, no tenderness , guarding or rigidity, no organomegaly EXTREMITIES: Right knee is currently dressed in OR dressing no drainage SKIN: No rash, no masses palpable. NEUROLOGICAL: The patient is awake, alert, oriented x3, mood and affect normal. Assessment and Plan (1) Septic prepatellar bursitis of right knee Current Visit: Yes Status: Acute Code(s): M71.161 - OTHER INFECTIVE BURSITIS, RIGHT KNEE SNOMED Code(s): 6452691665695863 (2) Failure of outpatient treatment Current Visit: No Status: Acute Code(s): Z78.9 - OTHER SPECIFIED HEALTH STATUS SNOMED Code(s): 698890548 Plan: 1patient presenting to the hospital with chronic swelling and drainage to the right knee area and apparently the patient did have a culture done by his primary care physician and it was a staph not MRSA has failed multiple treatment with oral Keflex more likely because of burden of disease failing outpatient medical treatment status post I&D of the bursa and deep culture 2-patient started on cefazolin 2 g every 8 hours to continue while waiting for the culture to finalize 3-whether the patient can be switched to p.o. or will need to IV antibiotics we will depend upon final culture and his clinical course this was explained to the patient and in layman term We will follow on clinical condition and cultures to further adjust medication if needed Thank you for this consultation we will follow the patient along with you Dictation was produced using [employer] dictation software. please excuse any grammatical, word or spelling errors. Time with Patient: Greater than 30
[2024-06-24] MEDS: CHOLECALCIFEROL 125 MCG (5000 IU) TABLET PO SCH (08:01)
[2024-06-24] MEDS: ASPIRIN 325 MG TAB PO SCH (08:01)
[2024-06-24] MEDS: LACTOBACILLUS ACIDOPHILUS/PECT 1 EACH CAPSULE PO SCH (08:01)
[2024-06-24 10:15] LABS: Basophils # (A) 0.02 X 10*3/uL (0.00-0.10); Basophils % (A) 0.2 %; Eosinophils # (A) 0.01 X 10*3/uL (0.04-0.35); Eosinophils % (A) 0.1 %; HCT 40.8 % (39.6-50.0); HGB 13.1 g/dL (13.0-17.0); Lymphocytes # (A) 0.96 X 10*3/uL (0.90-5.00); Lymphocytes % (A) 10.9 %; MCH 29.6 pg (27.0-32.0); MCHC 32.1 g/dL (32.0-37.0); MCV 92.1 FL (80.0-97.0); Mean Platelet Volume 10.2 FL (9.5-12.2); Monocytes # (A) 0.55 X 10*3/uL (0.20-1.00); Monocytes % (A) 6.3 %; NRBC Per 100 WBC 0 X 10*3/uL (0.00-0.01); Neutrophils # (A) 7.22 X 10*3/uL (1.80-7.70); Platelet Count 208 X 10*3/uL (140-440); RBC 4.43 X 10*6/uL (4.40-5.60); RDW 13.1 % (11.5-14.5)
[2024-06-24 10:35] LABS: BUN/Creat Ratio 23.38 Ratio (12.00-20.00); Blood Urea Nitrogen 18.7 mg/dL (9.0-27.0); Calcium 9.3 mg/dL (8.7-10.3); Carbon Dioxide 24.6 mmol/L (21.6-31.8); Chloride 104 mmol/L (96-109); Glucose 136 mg/dL (70-110); Magnesium 2.1 mg/dL (1.5-2.4); Potassium 4.4 mmol/L (3.5-5.5); Sodium 140 mmol/L (135-145)
[2024-06-24] MEDS: CARBIDOPA-LEVODOPA 25-250 MG 1 EACH TAB PO SCH (13:58)
[2024-06-24] MEDS: ENTACAPONE 200 MG TAB PO SCH (13:58)
--- NOTE | 2024-06-24 14:11 | P.PN ---
Subjective Progress Note Date: 06/24/24 Hospital Course: Patient is a very pleasant 68-year-old male with a past medical history of Parkinson's disease, hypertension, basal cell carcinoma status post surgical removal, and obstructive sleep apnea CPAP dependent nightly. He is admitted under orthopedic surgery team and is status post incision and drainage with irrigation and debridement of right knee septic prepatellar bursitis. Surgical procedure was completed by Dr. Weeks. We were consulted for medical management throughout hospitalization. Physical exam: Patient was seen and fully evaluated at bedside this morning. He was resting comfortably and denies having any complaints or needs at this time. Reports postoperative pain has only been mild rating 3-4 out of 10 at this time. He reports just feeling tired this morning. Patient denies having any other questions, needs, complaints, or concerns at this time. Vital signs reviewed and stable. General: Nontoxic, no distress and appears stated age. Derm: Skin warm and dry, normal coloration for ethnicity. Head: Atraumatic, normocephalic and symmetric. Eyes: EOM's intact, no lid lag, and anicteric sclera Mouth: no lip lesions, mucus membranes moist Cardiovascular: regular rate and rhythm with normal S1S2, no murmur, positive posterior tibial pulses bilaterally, and cap refill < 2 seconds. Lungs: Respirations even, regular, and unlabored on room air. Lungs CTA bilaterally, no rhonchi, no rales, no wheezing, and no accessory muscle usage. Abdominal: soft, nontender to palpation, no guarding, no appreciable organomegaly Ext: No gross muscle atrophy, no edema, no contractures. Movement and sensation intact. Postsurgical dressing in place to right knee. Neuro: Speech clear, face symmetrical and CN II-XII grossly intact with no noted focal neuro deficits. Patient with moderate upper and lower extremity resting tremors and facial tremors secondary to Parkinson's. Psych: Alert and oriented to person, place, time, and situation. Appropriate and pleasant affect. Assessment and Plan of Care: Right knee septic prepatellar bursitis Status post incision and drainage with debridement and irrigation of right knee -Patient is status post incision and drainage with debridement and irrigation. -Follow-up on wound cultures. -Continue Kefzol 2 g every 8 hours. -Infectious disease following, reviewed documentation in chart. -Continue symptomatic care and pain management. -Fall precautions -Wound/dressing management, DVT prophylaxis, weightbearing, and PT/OT per primary admitting orthopedic surgery team. Parkinson's disease -Continue carbidopa levodopa 25-250 mg tablets 4 times daily along with entacapone 200 mg 4 times daily. -Provide safe and supportive care and assistance as needed. -Maintain fall precautions. Hypertension -Continue daily medication regimen with hydrochlorothiazide 12.5 mg nightly and lisinopril 40 mg nightly. Obstructive sleep apnea -Continue CPAP nightly and while napping. Data and imaging reviewed: Vital signs reviewed. Blood pressure 112/57, heart rate 68, respiratory rate 16, temp 97.5 F, and SpO2 of 98% on room air. Postoperative labs reviewed. CBC unremarkable. BMP also normal findings. Blood glucose 136. Magnesium normal findings at 2.1. DVT prophylaxis per primary admitting orthopedic surgery team, patient currently on aspirin 325 mg daily. Thank you for allowing us to participate in the care of this pleasant patient. Do not hesitate to contact us with questions. Someone can be reached from the [facility] hospitalist group all hours of the day at [phone] or via [employer]. Patient was seen independently by Nurse Practitioner. This document was prepared using [employer] dictation software. Please allow for errors in media consultant outside sales while rare they do occur. I reviewed the documentation as provided by the NOA above, who is the original author of this note. I agree with the documented assessment and plan, with the following changes: none Objective - Vital Signs Vital signs: Vital Signs Temp 97.5 F L 06/24/24 07:00 Pulse 68 06/24/24 07:00 Resp 16 06/24/24 07:00 BP 112/57 06/24/24 07:00 Pulse Ox 98 06/24/24 07:00 FiO2 Intake & Output 06/23/24 06/24/24 06/24/24 18:59 06:59 18:59 Intake Total 951 Output Total 20 Balance 931 Weight 111.5 kg Intake: IV 951 Output: Estimated Blood Loss 20 Other: Voiding Method Toilet # Voids 2 1 1 - Labs CBC & Chem 7: 06/24/24 03:41 06/24/24 03:41
--- NOTE | 2024-06-24 15:19 | P.PN ---
Subjective Progress Note Date: 06/24/24 Principal diagnosis: Right knee prepatellar septic bursitis Patient evaluated at bedside, his is present, he is resting in his hospital chair. He is having no pain in the knee at this time. The Jason bandage is in good position and condition. He denies any fevers or chills. Objective - Vital Signs Vital signs: Vital Signs Temp 97.6 F 06/24/24 13:13 Pulse 60 06/24/24 13:13 Resp 17 06/24/24 13:13 BP 123/65 06/24/24 13:13 Pulse Ox 98 06/24/24 13:13 FiO2 Intake & Output 06/23/24 06/24/24 06/24/24 18:59 06:59 18:59 Intake Total 951 Output Total 20 Balance 931 Weight 111.5 kg Intake: IV 951 Output: Estimated Blood Loss 20 Other: Voiding Method Toilet Toilet # Voids 2 1 1 - Exam Right lower extremity: Jason bandages in good position and condition over the anterior aspect of the knee. Compartments are soft and compressible to the upper and lower leg. Plantarflexion, dorsiflexion, EHL, FHL are intact. Calf is soft, no tenderness with palpation. Sensory exam light touch is intact throughout the extremity. Dorsalis pedis pulses 2+ - Labs CBC & Chem 7: 06/24/24 03:41 06/24/24 03:41 Labs: Abnormal Lab Results - Last 24 Hours (Table) 06/24/24 06/24/24 Range/Units 03:41 03:41 Eosinophils # 0.01 L (0.04-0.35) X 10*3/uL BUN/Creatinine Ratio 23.38 H (12.00-20.00) Ratio Glucose 136 H (70-110) mg/dL Assessment and Plan Assessment: Right knee septic prepatellar bursitis Postoperative day #1 status post I&D right septic prepatellar bursitis Parkinson's Plan: Pain control, continue with current medications GI DVT prophylaxis, YANN hose and compression stockings Weight-bear as tolerated Monitor surgical dressing, plan for dressing change on 06/25/2024 Await culture and sensitivity results Other medical specialty recommendations appreciated Will continue to follow during hospital stay Time with Patient: Less than 30
--- NOTE | 2024-06-24 22:26 | P.PN ---
Subjective Progress Note Date: 06/24/24 Principal diagnosis: Reason for follow-up is right knee septic bursitis Patient is a 68-year-old male with a past medical history significant for hypertension sleep apnea Parkinson disease basal cell skin cancer in this patient has been dealing with right knee swelling and drainage for couple of weeks electively admitted to hospital after I&D of the right knee septic bursitis. On today's evaluation that is 06/24/2024 the patient continues to be afebrile, the patient is breathing comfortably on room air patient denies having any chest pain or cough, no nausea no vomiting abdominal pain or diarrhea, pain to the right knee is currently controlled. Patient did have white count of 8.80, creatinine 0.8 cultures currently pending Objective - Vital Signs Vital signs: Vital Signs Temp 97.5 F L 06/24/24 07:00 Pulse 68 06/24/24 08:00 Resp 16 06/24/24 08:00 BP 112/57 06/24/24 07:00 Pulse Ox 98 06/24/24 07:00 FiO2 Intake & Output 06/23/24 06/24/24 06/24/24 18:59 06:59 18:59 Intake Total 951 Output Total 20 Balance 931 Weight 111.5 kg Intake: IV 951 Output: Estimated Blood Loss 20 Other: Voiding Method Toilet Toilet # Voids 2 1 1 - Exam GENERAL DESCRIPTION: An elderly male lying in bed in no distress RESPIRATORY SYSTEM: Unlabored breathing , decreased breath sounds at bases HEART: S1 S2 regular rate and rhythm , ABDOMEN: Soft , no tenderness EXTREMITIES: Right knee is currently dressed in OR dressing no drainage - Labs CBC & Chem 7: 06/24/24 03:41 06/24/24 03:41 Labs: Abnormal Lab Results - Last 24 Hours (Table) 06/24/24 06/24/24 Range/Units 03:41 03:41 Eosinophils # 0.01 L (0.04-0.35) X 10*3/uL BUN/Creatinine Ratio 23.38 H (12.00-20.00) Ratio Glucose 136 H (70-110) mg/dL Assessment and Plan (1) Septic prepatellar bursitis of right knee Current Visit: Yes Status: Acute Code(s): M71.161 - OTHER INFECTIVE BURSITIS, RIGHT KNEE SNOMED Code(s): 5342707800362643 (2) Failure of outpatient treatment Current Visit: No Status: Acute Code(s): Z78.9 - OTHER SPECIFIED HEALTH STATUS SNOMED Code(s): 915773621 Plan: 1patient presenting to the hospital with chronic swelling and drainage to the right knee area and apparently the patient did have a culture done by his primary care physician and it was a staph not MRSA has failed multiple treatment with oral Keflex more likely because of burden of disease failing outpatient medical treatment status post I&D of the bursa and deep culture 2-patient to continue with cefazolin 2 g every 8 hours to continue while waiting for the culture to finalize to determine his discharge antibiotics Dictation was produced using [employer] dictation software. please excuse any grammatical, word or spelling errors.
--- NOTE | 2024-06-25 09:14 | P.PN ---
Subjective Progress Note Date: 06/25/24 Principal diagnosis: Right knee prepatellar septic bursitis Patient evaluated at bedside, his is present, he is resting in his hospital chair. He is having no pain in the knee at this time. Cultures are showing preliminary Staph aureus bacteria. He denies any fevers or chills. Objective - Vital Signs Vital signs: Vital Signs Temp 97.7 F 06/25/24 07:10 Pulse 60 06/25/24 07:10 Resp 19 06/25/24 07:10 BP 158/76 06/25/24 07:10 Pulse Ox 96 06/25/24 07:10 FiO2 Intake & Output 06/24/24 06/25/24 06/25/24 18:59 06:59 18:59 Other: Voiding Method Toilet Toilet # Voids 1 2 - Exam Right lower extremity: Dressing removed today at bedside, Juvenal drain removed. Sutures are all in good position condition. No significant erythema or swelling noted. Compartments are soft and compressible to the upper and lower leg. P lantarflexion, dorsiflexion, EHL, FHL are intact. Calf is soft, no tenderness with palpation. Sensory exam light touch is intact throughout the extremity. Dorsalis pedis pulses 2+ - Labs CBC & Chem 7: 06/24/24 03:41 06/24/24 03:41 Labs: Abnormal Lab Results - Last 24 Hours (Table) 06/24/24 06/24/24 Range/Units 03:41 03:41 Eosinophils # 0.01 L (0.04-0.35) X 10*3/uL BUN/Creatinine Ratio 23.38 H (12.00-20.00) Ratio Glucose 136 H (70-110) mg/dL Microbiology - Last 24 Hours (Table) 06/23/24 12:11 Gram Stain - Preliminary Other - Other 06/23/24 12:11 Gram Stain - Preliminary Other - Other Wound Culture - Preliminary Presumptive Staph aureus Assessment and Plan Assessment: Right knee septic prepatellar bursitis Postoperative day #2 status post I&D right septic prepatellar bursitis Parkinson's Plan: Pain control, continue with current medications GI DVT prophylaxis, YANN hose and compression stockings Weight-bear as tolerated Monitor surgical dressing Await culture and sensitivity results Other medical specialty recommendations appreciated Will continue to follow during hospital stay Time with Patient: Less than 30
[2024-06-25 09:29] LABS: HCT 43.5 % (39.0-53.0); HGB 14.3 gm/dL (13.0-17.5); MCH 30.6 pg (25.0-35.0); MCV 92.8 fL (80.0-100.0); Mean Platelet Volume 7.5; Platelet Count 188 k/uL (150-450); RBC 4.69 m/uL (4.30-5.90); RDW 13.1 % (11.5-15.5); WBC 6.8 k/uL (3.8-10.6)
[2024-06-25 09:47] LABS: ALT 7 U/L (4-49); AST 21 U/L (17-59); African American GFR (CKD) >90 (>60 ml/min/1.73 sqM); Albumin 4.2 g/dL (3.5-5.0); Albumin/Globulin Ratio 1.8; Alkaline Phosphatase 56 U/L (38-126); Anion Gap 6 mmol/L; Blood Urea Nitrogen 19 mg/dL (9-20); Calcium 9.7 mg/dL (8.4-10.2); Carbon Dioxide 26 mmol/L (22-30); Chloride 106 mmol/L (98-107); Globulin 2.3 g/dL; Glucose 94 mg/dL (74-99); Magnesium 1.9 mg/dL (1.6-2.3); Non-African American GFR(CKD) >90 (>60 ml/min/1.73 sqM); Potassium 4.3 mmol/L (3.5-5.1); Sodium 138 mmol/L (137-145); Total Bilirubin 0.7 mg/dL (0.2-1.3); Total Protein 6.5 g/dL (6.3-8.2)
[2024-06-25] MEDS: AMPICILLIN-SULBACTAM 3 GM in SODIUM CHLORIDE 0.9% 100 ML IVPB SCH (12:26)
--- NOTE | 2024-06-25 14:36 | P.PN ---
Subjective Progress Note Date: 06/25/24 Hospital Course: Patient is a very pleasant 68-year-old male with a past medical history of Parkinson's disease, hypertension, basal cell carcinoma status post surgical removal, and obstructive sleep apnea CPAP dependent nightly. He is admitted under orthopedic surgery team and is status post incision and drainage with irrigation and debridement of right knee septic prepatellar bursitis. Surgical procedure was completed by Dr. Weeks. We were consulted for medical management throughout hospitalization. Physical exam: Patient was seen and fully evaluated at bedside this morning. He was resting comfortably and denies having any complaints or needs at this time. Reports postoperative pain has only been mild rating 3-4 out of 10 at this time. He reports just feeling tired this morning. Patient denies having any other questions, needs, complaints, or concerns at this time. Vital signs reviewed and stable. General: Nontoxic, no distress and appears stated age. Derm: Skin warm and dry, normal coloration for ethnicity. Head: Atraumatic, normocephalic and symmetric. Eyes: EOM's intact, no lid lag, and anicteric sclera Mouth: no lip lesions, mucus membranes moist Cardiovascular: regular rate and rhythm with normal S1S2, no murmur, positive posterior tibial pulses bilaterally, and cap refill < 2 seconds. Lungs: Respirations even, regular, and unlabored on room air. Lungs CTA bilaterally, no rhonchi, no rales, no wheezing, and no accessory muscle usage. Abdominal: soft, nontender to palpation, no guarding, no appreciable organomegaly Ext: No gross muscle atrophy, no edema, no contractures. Movement and sensation intact. Postsurgical dressing in place to right knee. Neuro: Speech clear, face symmetrical and CN II-XII grossly intact with no noted focal neuro deficits. Patient with moderate upper and lower extremity resting tremors and facial tremors secondary to Parkinson's. Psych: Alert and oriented to person, place, time, and situation. Appropriate and pleasant affect. Assessment and Plan of Care: Right knee septic prepatellar bursitis Status post incision and drainage with debridement and irrigation of right knee -Patient is status post incision and drainage with debridement and irrigation. -Wound culture preliminarily positive for presumptive Staph aureus and Group D Enterococcus, awaiting final culture and sensitivity reports -Continue IV antibiotics with Unasyn 3 g every 6 hours -Infectious disease following, discussed plan of care and infectious disease discontinuing Kefzol and starting patient on Unasyn pending final culture and sensitivity report. -Continue symptomatic care and pain management. -Fall precautions -Wound/dressing management, DVT prophylaxis, weightbearing, and PT/OT per primary admitting orthopedic surgery team. Parkinson's disease -Continue carbidopa levodopa 25-250 mg tablets 4 times daily along with entacapone 200 mg 4 times daily. -Provide safe and supportive care and assistance as needed. -Maintain fall precautions. Hypertension -Continue daily medication regimen with hydrochlorothiazide 12.5 mg nightly and lisinopril 40 mg nightly. Obstructive sleep apnea -Continue CPAP nightly and while napping. Data and imaging reviewed: Vital signs reviewed. Blood pressure 158/76, heart rate 60, respiratory rate 19, temp 97.7 F, and SpO2 of 96% on room air. Postoperative labs reviewed. CBC and CMP unremarkable. Blood glucose 94. Magnesium normal findings at 1.9. DVT prophylaxis per primary admitting orthopedic surgery team, patient currently on aspirin 325 mg daily. Thank you for allowing us to participate in the care of this pleasant patient. Do not hesitate to contact us with questions. Someone can be reached from the [facility] all hours of the day at [phone] or via [employer]. Patient was seen independently by Nurse Practitioner. This document was prepared using [employer] dictation software. Please allow for errors in collections technician while rare they do occur. I reviewed the documentation as provided by the NOA above, who is the original author of this note. I agree with the documented assessment and plan, with the following changes: none Objective - Vital Signs Vital signs: Vital Signs Temp 97.7 F 06/25/24 07:10 Pulse 60 06/25/24 07:10 Resp 19 06/25/24 07:10 BP 158/76 06/25/24 07:10 Pulse Ox 96 06/25/24 07:10 FiO2 Intake & Output 06/24/24 06/25/24 06/25/24 18:59 06:59 18:59 Other: Voiding Method Toilet Toilet # Voids 1 2 - Labs CBC & Chem 7: 06/25/24 09:05 06/25/24 09:05 Labs: Abnormal Lab Results - Last 24 Hours (Table) 06/24/24 06/24/24 Range/Units 03:41 03:41 Eosinophils # 0.01 L (0.04-0.35) X 10*3/uL BUN/Creatinine Ratio 23.38 H (12.00-20.00) Ratio Glucose 136 H (70-110) mg/dL Microbiology - Last 24 Hours (Table) 06/23/24 12:11 Gram Stain - Preliminary Other - Other 06/23/24 12:11 Gram Stain - Preliminary Other - Other Wound Culture - Preliminary Presumptive Staph aureus
[2024-06-25] MEDS: CHOLECALCIFEROL 125 MCG (5000 IU) TABLET PO SCH (20:16)
--- NOTE | 2024-06-25 22:00 | P.PN ---
Subjective Progress Note Date: 06/25/24 Principal diagnosis: Reason for follow-up is right knee septic bursitis Patient is a 68-year-old male with a past medical history significant for hypertension sleep apnea Parkinson disease basal cell skin cancer in this patient has been dealing with right knee swelling and drainage for couple of weeks electively admitted to hospital after I&D of the right knee septic bursitis. On today's evaluation that is 06/25/2024, the patient continues to be afebrile, the patient is on room air and breathing comfortably, the Pt denies having any chest pain or cough, the patient denies having any abdominal pain no vomiting or any diarrhea, pain to the right knee has decreased intensity. Patient white count 6.8, creatinine 0.73 culture not growing Staph aureus and group D Enterococcus Objective - Vital Signs Vital signs: Vital Signs Temp 97.7 F 06/25/24 07:10 Pulse 60 06/25/24 08:10 Resp 19 06/25/24 08:10 BP 158/76 06/25/24 07:10 Pulse Ox 96 06/25/24 07:10 FiO2 Intake & Output 06/24/24 06/25/24 06/25/24 18:59 06:59 18:59 Other: Voiding Method Toilet Toilet Toilet # Voids 1 2 - Exam GENERAL DESCRIPTION: An elderly male lying in bed in no distress RESPIRATORY SYSTEM: Unlabored breathing , decreased breath sounds at bases HEART: S1 S2 regular rate and rhythm , ABDOMEN: Soft , no tenderness EXTREMITIES: Right knee is currently dressed in OR dressing no drainage - Labs CBC & Chem 7: 06/25/24 09:05 06/25/24 09:05 Labs: Microbiology - Last 24 Hours (Table) 06/23/24 12:11 Gram Stain - Preliminary Other - Other Wound Culture - Preliminary Group D Enterococcus Presumptive Staph aureus 06/23/24 12:11 Gram Stain - Preliminary Other - Other Wound Culture - Preliminary Presumptive Staph aureus Assessment and Plan (1) Septic prepatellar bursitis of right knee Current Visit: Yes Status: Acute Code(s): M71.161 - OTHER INFECTIVE BURSITIS, RIGHT KNEE SNOMED Code(s): 1075460955215773 (2) Failure of outpatient treatment Current Visit: No Status: Acute Code(s): Z78.9 - OTHER SPECIFIED HEALTH STATUS SNOMED Code(s): 636868857 Plan: 1patient presenting to the hospital with chronic swelling and drainage to the right knee area and apparently the patient did have a culture done by his primary care physician and it was a staph not MRSA has failed multiple treatment with oral Keflex more likely because of burden of disease failing outpatient medical treatment status post I&D of the bursa and deep culture which are currently growing Staph aureus and group D Enterococcus with sensitivities pending 2-we will discontinue cefazolin and start the patient on Unasyn to cover for both possible MSSA Enterococcus we will order PICC line with the final discharge antibiotic on the basis of sensitivity Dictation was produced using [employer] dictation software. please excuse any grammatical, word or spelling errors. Time with Patient: Less than 30
[2024-06-26 08:37] LABS: Basophils # (A) 0.06 X 10*3/uL (0.00-0.10); Basophils % (A) 0.9 %; Eosinophils # (A) 0.19 X 10*3/uL (0.04-0.35); HCT 44.8 % (39.6-50.0); HGB 14.6 g/dL (13.0-17.0); Lymphocytes # (A) 2.11 X 10*3/uL (0.90-5.00); Lymphocytes % (A) 32.8 %; MCH 29.7 pg (27.0-32.0); MCHC 32.6 g/dL (32.0-37.0); MCV 91.1 FL (80.0-97.0); Monocytes % (A) 9.3 %; NRBC Per 100 WBC 0 X 10*3/uL (0.00-0.01); Neutrophils # (A) 3.46 X 10*3/uL (1.80-7.70); Neutrophils % (A) 53.8 %; Platelet Count 212 X 10*3/uL (140-440); RBC 4.92 X 10*6/uL (4.40-5.60); RDW 12.8 % (11.5-14.5); WBC 6.43 X 10*3/uL (4.50-10.00)
[2024-06-26 08:55] LABS: ALT 8 U/L (10-49); AST 16 U/L (14-35); Albumin 4.3 g/dL (3.8-4.9); Albumin/Globulin Ratio 1.95 Ratio (1.60-3.17); Alkaline Phosphatase 71 U/L (41-126); BUN/Creat Ratio 18.89 Ratio (12.00-20.00); Calcium 9.8 mg/dL (8.7-10.3); Carbon Dioxide 25.8 mmol/L (21.6-31.8); Chloride 102 mmol/L (96-109); Globulin 2.2 g/dL (1.6-3.3); Glucose 88 mg/dL (70-110); Magnesium 2.1 mg/dL (1.5-2.4); Potassium 4.4 mmol/L (3.5-5.5); Sodium 141 mmol/L (135-145); Total Bilirubin 0.4 mg/dL (0.3-1.2); Total Protein 6.5 g/dL (6.2-8.2)
--- NOTE | 2024-06-26 11:03 | P.PN ---
Subjective Progress Note Date: 06/26/24 Principal diagnosis: Right knee prepatellar septic bursitis Patient evaluated at bedside, his is present, he is resting in his hospital chair. He is having no pain in the knee at this time. Culture and sensitivity are back, it is showing Staph aureus and group D Enterococcus. Patient did have a PICC line placed today. He denies any fevers or chills. Objective - Vital Signs Vital signs: Vital Signs Temp 97.7 F 06/26/24 06:55 Pulse 58 L 06/26/24 06:55 Resp 17 06/26/24 06:55 BP 148/72 06/26/24 06:55 Pulse Ox 97 06/26/24 06:55 FiO2 Intake & Output 06/25/24 06/26/24 06/26/24 18:59 06:59 18:59 Other: Voiding Method Toilet # Voids 1 - Exam Right lower extremity: Postop dressing is in good position condition. No significant erythema or swelling noted. Compartments are soft and compressible to the upper and lower leg. Plantarflexion, dorsiflexion, EHL, FHL are intact. Calf is soft, no tenderness with palpation. Sensory exam light touch is intact throughout the extremity. Dorsalis pedis pulses 2+ - Labs CBC & Chem 7: 06/26/24 03:16 06/26/24 03:16 Labs: Abnormal Lab Results - Last 24 Hours (Table) 06/26/24 Range/Units 03:16 Anion Gap 13.20 H (4.00-12.00) mmol/L ALT 8 L (10-49) U/L Microbiology - Last 24 Hours (Table) 06/23/24 12:11 Gram Stain - Preliminary Other - Other Wound Culture - Preliminary Group D Enterococcus Staphylococcus aureus 06/23/24 12:11 Gram Stain - Preliminary Other - Other Wound Culture - Preliminary Staphylococcus aureus Assessment and Plan Assessment: Right knee septic prepatellar bursitis Postoperative day #3 status post I&D right septic prepatellar bursitis Parkinson's Plan: Pain control, continue with current medications GI DVT prophylaxis, YANN hose and compression stockings Weight-bear as tolerated Monitor surgical dressing Infectious disease recommendations for outpatient antibiotics Other medical specialty recommendations appreciated Plan for discharge home today Time with Patient: Less than 30
--- NOTE | 2024-06-26 11:07 | P.DS ---
Providers Date of admission: 06/26/24 08:10 Expected date of discharge: 06/26/24 Attending physician: Camilo Weeks Consults: 06/23/24 12:24 Consult Physician Routine Consulting Provider: Keerthi Patel Consult Reason/Comments: medical management s/p right knee incision and drainage Do you want consulting provider notified?: Yes 06/23/24 12:27 Consult Physician Routine Consulting Provider: Tierra Farley Consult Reason/Comments: ID management sp right knee incision and drainage for septic bursitis Do you want consulting provider notified?: Yes Primary care physician: [facility] Course: Date of admission: 06/23/2024 Date of discharge: 06/26/2024 Admission diagnosis: Right knee septic prepatellar bursitis, status post I&D Discharge diagnosis: Same Attending physician: Dr. Weeks Surgical procedures: Incision and drainage with irrigation and debridement right knee septic prepatellar bursitis Brief history: Patient is a 68-year-old male with a history of right knee septic prepatellar bursitis. At this point patient has failed conservative treatment measures and has opted to proceed with a elective I&D right knee septic prepatellar bursitis. Hospital course: Details of patient's surgery can be found in operative report. Patient tolerated the procedure well and was subsequently transported to orthopedic floor. Patient's orthopeidc and medical care was provided daily. Patient had daily laboratory tests performed for evaluation of overall blood counts. Patient had daily physical therapy to include strengthening range of motion as well as education with walker ambulation. Patient was treated with YANN hose and compression stockings for their postoperative DVT prophylaxis during their inpatient stay. Patient was noted to have a relatively uneventful postoperative course. Patient reported satisfactory pain control with oral pain medications by postoperative day 0. Patient showed satisfactory progress with physical therapy. Patient moved steadily through the program and had no difficulty meeting the goals by postoperative day 3. Given patient's otherwise satisfactory course and having met physical therapy goals, plan is to discharge patient home on postoperative day 3. Discharge condition/disposition: Patient will be discharged home in stable condition. Discharge medications: Instructions are given on resumption of patient's normal daily medications per primary care recommendation, in addition patient will be prescribed IV antibiotics. Discharge instructions: 1. Antibacterial soap and water over the incision, no soaking 2. Basic bandage over the knee 3. Ice and elevate as needed 4. Weight-bear as tolerated 5. IV antibiotics per infectious disease recommendations 6. Plan [facility] for recheck in the next 10 days Procedures: Incision and drainage with irrigation and debridement right knee septic p repatellar bursitis Patient Condition at Discharge: Good Plan - Discharge Summary Discharge Rx Participant: No New Discharge Prescriptions: No Action lisinopriL 40 mg PO HS@2200 Citalopram Hydrobromide [CeleXA] 40 mg PO HS@2200 hydroCHLOROthiazide 12.5 mg PO HS@2200 ALPRAZolam [Xanax] 0.5 mg PO BID PRN PRN Reason: Anxiety oxyBUTYnin chloride [oxyBUTYnin chloride ER] 5 mg PO HS Famotidine [Pepcid] 40 mg PO HS Carbidopa/Levodopa [Carbidopa/Levodopa 25-250 Tab] 1 tab PO QID Cholecalciferol [Vitamin D3 (25 Mcg = 1000 Iu)] 250 mcg PO DAILY Pramipexole [Mirapex] 0.5 mg PO TID Entacapone [Comtan] 200 mg PO QID L.acidoph,Paracasei, B.lactis [Probiotic] 2 each PO DAILY Garlic 2,000 mg PO DAILY Love Your Brain Supp 1 dose PO DAILY Discharge Medication List ALPRAZolam [Xanax] 0.5 mg PO BID PRN 10/11/20 [History] Citalopram Hydrobromide [CeleXA] 40 mg PO HS@219910/11/20 [History] hydroCHLOROthiazide 12.5 mg PO HS@219910/11/20 [History] lisinopriL 40 mg PO HS@219910/11/20 [History] Carbidopa/Levodopa [Carbidopa/Levodopa 25-250 Tab] 1 tab PO QID 06/20/24 [History] Cholecalciferol [Vitamin D3 (25 Mcg = 1000 Iu)] 250 mcg PO DAILY 06/20/24 [History] Entacapone [Comtan] 200 mg PO QID 06/20/24 [History] Famotidine [Pepcid] 40 mg PO HS 06/20/24 [History] Garlic 2,000 mg PO DAILY 06/20/24 [History] L.acidoph,Paracasei, B.lactis [Probiotic] 2 each PO DAILY 06/20/24 [History] Love Your Brain Supp 1 dose PO DAILY 06/20/24 [History] Pramipexole [Mirapex] 0.5 mg PO TID 06/20/24 [History] oxyBUTYnin chloride [oxyBUTYnin chloride ER] 5 mg PO HS 06/20/24 [History] Follow up Appointment(s)/Referral(s): Xavier Lion, PAC [PHYSICIAN CREATIVE SERVICES DIRECTOR] - 10 Days Activity/Diet/Wound Care/Special Instructions: Orthopedic discharge instructions: 1. Resume home medications 2. Okay to utilize antibacterial soap and water over the incision, no soaking 3. Basic bandaging to the right knee 4. Weight-bear as tolerated 5. Ice and elevate as needed 6. Plan for [facility]-up at [facility] 10 days Discharge Disposition: HOME WITH HOME HEALTH SERVICES
--- NOTE | 2024-06-26 12:57 | P.PN ---
Subjective Progress Note Date: 06/26/24 Principal diagnosis: Reason for follow-up is right knee septic bursitis Patient is a 68-year-old male with a past medical history significant for hypertension sleep apnea Parkinson disease basal cell skin cancer in this patient has been dealing with right knee swelling and drainage for couple of weeks electively admitted to hospital after I&D of the right knee septic bursitis. On today's evaluation that is 06/26/2024, Patient is afebrile patient is currently on room air and denies having any shortness of breath, the patient denies any chest pain or cough, the patient denies any nausea vomiting did not have any abdominal pain and no diarrhea patient pain to the right knee is currently controlled. Patient white count 6.43, creatinine 0.9 culture with group D Enterococcus and Staph aureus MSSA Objective - Vital Signs Vital signs: Vital Signs Temp 97.7 F 06/26/24 06:55 Pulse 58 L 06/26/24 06:55 Resp 17 06/26/24 06:55 BP 148/72 06/26/24 06:55 Pulse Ox 97 06/26/24 06:55 FiO2 Intake & Output 06/25/24 06/26/24 06/26/24 18:59 06:59 18:59 Other: Voiding Method Toilet # Voids 1 - Exam Elderly male up in the chair in no distress No tachypnea or accessory muscle respiration use Unlabored breathing Right knee incision is currently dressed no drainage - Labs CBC & Chem 7: 06/26/24 03:16 06/26/24 03:16 Labs: Abnormal Lab Results - Last 24 Hours (Table) 06/26/24 Range/Units 03:16 Anion Gap 13.20 H (4.00-12.00) mmol/L ALT 8 L (10-49) U/L Microbiology - Last 24 Hours (Table) 06/23/24 12:11 Gram Stain - Preliminary Other - Other Wound Culture - Preliminary Group D Enterococcus Staphylococcus aureus 06/23/24 12:11 Gram Stain - Preliminary Other - Other Wound Culture - Preliminary Staphylococcus aureus Assessment and Plan (1) Septic prepatellar bursitis of right knee Current Visit: Yes Status: Acute Code(s): M71.161 - OTHER INFECTIVE BURSITIS, RIGHT KNEE SNOMED Code(s): 4969578040143308 (2) Failure of outpatient treatment Current Visit: No Status: Acute Code(s): Z78.9 - OTHER SPECIFIED HEALTH STATUS SNOMED Code(s): 661379672 Plan: 1patient presenting to the hospital with chronic swelling and drainage to the right knee area and apparently the patient did have a culture done by his primary care physician and it was a staph not MRSA has failed multiple treatment with oral Keflex more likely because of burden of disease failing outpatient medical treatment status post I&D of the bursa and deep culture which are currently growing MSSA and group D Enterococcus which is ampicillin sensitive 2-patient did get a PICC line we will consider a 2-week course of IV Unasyn no discharge prescription has been provided to the case preparer and liner at the bedside multiple question concern answered in layman term Dictation was produced using [employer] dictation software. please excuse any grammatical, word or spelling errors. Time with Patient: Less than 30
--- NOTE | 2024-06-26 14:33 | P.PN ---
Subjective Progress Note Date: 06/26/24 Hospital Course: Patient is a very pleasant 68-year-old male with a past medical history of Parkinson's disease, hypertension, basal cell carcinoma status post surgical removal, and obstructive sleep apnea CPAP dependent nightly. He is admitted under orthopedic surgery team and is status post incision and drainage with irrigation and debridement of right knee septic prepatellar bursitis. Surgical procedure was completed by Dr. Weeks. We were consulted for medical management throughout hospitalization. Physical exam: Patient was seen and fully evaluated at bedside this morning. He was sitting up in the chair at bedside and denies having any complaints or needs at this time. Patient reports postoperative pain is 0. He denies having any other complaints or concerns at this time and feels that he is ready to be discharged home. Vital signs reviewed and stable. Gener.al: Nontoxic, no distress and appears stated age. Derm: Skin warm and dry, normal coloration for ethnicity. Head: Atraumatic, normocephalic and symmetric. Eyes: EOM's intact, no lid lag, and anicteric sclera Mouth: no lip lesions, mucus membranes moist Cardiovascular: regular rate and rhythm with normal S1S2, no murmur, positive po sterior tibial pulses bilaterally, and cap refill < 2 seconds. Lungs: Respirations even, regular, and unlabored on room air. Lungs CTA bilaterally, no rhonchi, no rales, no wheezing, and no accessory muscle usage. Abdominal: soft, nontender to palpation, no guarding, no appreciable organomegaly Ext: No gross muscle atrophy, no edema, no contractures. Movement and sensation intact. Postsurgical dressing in place to right knee. Neuro: Speech clear, face symmetrical and CN II-XII grossly intact with no noted focal neuro deficits. Patient with moderate upper and lower extremity resting tremors and facial tremors secondary to Parkinson's. Psych: Alert and oriented to person, place, time, and situation. Appropriate and pleasant affect. Assessment and Plan of Care: Right knee septic prepatellar bursitis Status post incision and drainage with debridement and irrigation of right knee -Patient is status post incision and drainage with debridement and irrigation. -Wound culture positive for Staph aureus and Group D Enterococcus. -Continue IV antibiotics with Unasyn 3 g every 6 hours -Infectious disease following, to manage outpatient IV antibiotics. -Continue symptomatic care and pain management. -Fall precautions -Wound/dressing management, DVT prophylaxis, weightbearing, and PT/OT per primary admitting orthopedic surgery team. Parkinson's disease -Continue carbidopa levodopa 25-250 mg tablets 4 times daily along with entacapone 200 mg 4 times daily. -Provide safe and supportive care and assistance as needed. -Maintain fall precautions. Hypertension -Continue daily medication regimen with hydrochlorothiazide 12.5 mg nightly and lisinopril 40 mg nightly. Obstructive sleep apnea -Continue CPAP nightly and while napping. Data and imaging reviewed: Vital signs reviewed. Blood pressure 148/72, heart rate 58, respiratory rate 17, temp 97.7 F, and SpO2 of 97% on room air. Morning labs reviewed. CBC remains unremarkable. BMP showing slightly elevated anion gap of 13.20 otherwise normal findings. Blood glucose 93. Magnesium 2.1. And liver profile unremarkable. Wound culture positive for Staph aureus and Group D Enterococcus. DVT prophylaxis per primary admitting orthopedic surgery team, patient currently on aspirin 325 mg daily. Thank you for allowing us to participate in the care of this pleasant patient. Do not hesitate to contact us with questions. Someone can be reached from the [facility] hospitalist group all hours of the day at [phone] or via perfect serve. Patient was seen independently by Nurse Practitioner. This document was prepared using [employer] dictation software. Please allow for errors in fast food supervisor while rare they do occur. I reviewed the documentation as provided by the NOA above, who is the original author of this note. I agree with the documented assessment and plan, with the following changes: none. Objective - Vital Signs Vital signs: Vital Signs Temp 97.7 F 06/26/24 06:55 Pulse 58 L 06/26/24 06:55 Resp 17 06/26/24 06:55 BP 148/72 06/26/24 06:55 Pulse Ox 97 06/26/24 06:55 FiO2 Intake & Output 06/25/24 06/26/24 06/26/24 18:59 06:59 18:59 Other: Voiding Method Toilet # Voids 1 - Labs CBC & Chem 7: 06/26/24 03:16 06/26/24 03:16 Labs: Microbiology - Last 24 Hours (Table) 06/23/24 12:11 Gram Stain - Preliminary Other - Other Wound Culture - Preliminary Staphylococcus aureus 06/23/24 12:11 Gram Stain - Preliminary Other - Other Wound Culture - Preliminary Group D Enterococcus Presumptive Staph aureus
[2024-06-26 15:01] VITALS: RESP 16
[2024-06-27 07:47] VITALS: BP 151/81; PULSE 60; TEMP 98
--- NOTE | 2024-06-27 13:08 | P.PN ---
Progress Note - Text Progress Note Date: 06/27/24 Patient seen and examined this morning. Patient did not discharge yesterday 06/26/2024 due to the unavailability of setting up his IV infusion. Patient is currently resting in bed. He states that his pain is managed on current regimen. He denies any any needs at this time. Patient is looking forward to possible discharge later today.
--- NOTE | 2024-06-27 15:25 | P.PN ---
Subjective Progress Note Date: 06/27/24 Principal diagnosis: Reason for follow-up is right knee septic bursitis Patient is a 68-year-old male with a past medical history significant for hypertension sleep apnea Parkinson disease basal cell skin cancer in this patient has been dealing with right knee swelling and drainage for couple of weeks electively admitted to hospital after I&D of the right knee septic bursitis. On today's evaluation that is 06/27/2024, patient has been afebrile, patient is breathing comfortably and is currently on room air, patient denies having any significant cough no chest pain, patient denies nausea vomiting or diarrhea and no abdominal pain, patient pain to the right knee is currently controlled. Patient did not have a lab draw today Objective - Vital Signs Vital signs: Vital Signs Temp 98.0 F 06/27/24 07:45 Pulse 60 06/27/24 07:45 Resp 16 06/27/24 07:45 BP 151/81 06/27/24 07:45 Pulse Ox 93 L 06/27/24 07:45 FiO2 Intake & Output 06/26/24 06/27/24 06/27/24 18:59 06:59 18:59 Intake Total 440 Balance 440 Intake: Intake, IV Titration 440 Amount Ampicillin-Sulbactam 3 gm 200 In Sodium Chloride 0.9% 100 ml @ 200 mls/hr IVPB Q6HR [facility] Rx#:[id number] Lactated Ringers 1,000 ml 240 @ 20 mls/hr IV .Q24H [facility] Rx#:[id number] Other: # Voids 3 - Exam Elderly male up in the chair in no distress No tachypnea or accessory muscle respiration use Unlabored breathing Right knee incision is incision is intact minimal swelling no significant drainage - Labs CBC & Chem 7: 06/26/24 03:16 06/26/24 03:16 Labs: Microbiology - Last 24 Hours (Table) 06/23/24 12:11 Gram Stain - Final Other - Other Wound Culture - Final Staphylococcus aureus Enterococcus faecalis 06/23/24 12:11 Gram Stain - Final Other - Other Wound Culture - Final Enterococcus faecalis Staphylococcus aureus Assessment and Plan (1) Septic prepatellar bursitis of right knee Status: Acute Code(s): M71.161 - OTHER INFECTIVE BURSITIS, RIGHT KNEE SNOMED Code(s): 1974163762718113 (2) Failure of outpatient treatment Status: Acute Code(s): Z78.9 - OTHER SPECIFIED HEALTH STATUS SNOMED Code(s): 223049101 Plan: 1patient presenting to the hospital with chronic swelling and drainage to the right knee area and apparently the patient did have a culture done by his primary care physician and it was a staph not MRSA has failed multiple treatment with oral Keflex more likely because of burden of disease failing outpatient medical treatment status post I&D of the bursa and deep culture 2-patient cultures have been finalized with MSSA and Enterococcus faecalis patient did get a PICC line placed for a 2-week course of IV Unasyn 3 g every 6 hours and close outpatient follow-up Dictation was produced using [employer] dictation software. please excuse any gra mmatical, word or spelling errors. Time with Patient: Less than 30
--- NOTE | 2024-06-27 18:24 | P.PN ---
Subjective Progress Note Date: 06/27/24 Hospital Course: Patient is a very pleasant 68-year-old male with a past medical history of Parkinson's disease, hypertension, basal cell carcinoma status post surgical removal, and obstructive sleep apnea CPAP dependent nightly. He is admitted under orthopedic surgery team and is status post incision and drainage with irrigation and debridement of right knee septic prepatellar bursitis. Surgical procedure was completed by Dr. Wekes. We were consulted for medical management throughout hospitalization. Physical exam: Patient was seen and fully evaluated at bedside this morning. He was sitting up in the chair at bedside and denies having any complaints or needs at this time. Continues to report controlled postoperative pain. Infusion clinic has been set up by case management with [facility]. Patient to receive IV dose of antibiotics today at 1 and is being discharged home on IV antibiotics managed by infectious disease. PICC line in place to left upper extremity. Patient is medically optimized for discharge at this time. Vital signs reviewed and stable. Gener.al: Nontoxic, no distress and appears stated age. Derm: Skin warm and dry, normal coloration for ethnicity. Head: Atraumatic, normocephalic and symmetric. Eyes: EOM's intact, no lid lag, and anicteric sclera Mouth: no lip lesions, mucus membranes moist Cardiovascular: regular rate and rhythm with normal S1S2, no murmur, positive posterior tibial pulses bilaterally, and cap refill < 2 seconds. Lungs: Respirations even, regular, and unlabored on room air. Lungs CTA bilaterally, no rhonchi, no rales, no wheezing, and no accessory muscle usage. Abdominal: soft, nontender to palpation, no guarding, no appreciable organomeg kalli Ext: No gross muscle atrophy, no edema, no contractures. Movement and sensation intact. Postsurgical dressing in place to right knee. Neuro: Speech clear, face symmetrical and CN II-XII grossly intact with no noted focal neuro deficits. Patient with moderate upper and lower extremity resting tremors and facial tremors secondary to Parkinson's. Psych: Alert and oriented to person, place, time, and situation. Appropriate and pleasant affect. Assessment and Plan of Care: Right knee septic prepatellar bursitis Status post incision and drainage with debridement and irrigation of right knee -Patient is status post incision and drainage with debridement and irrigation. -Wound culture positive for Staph aureus and Group D Enterococcus. -Continue IV antibiotics with Unasyn 3 g every 6 hours -Infectious disease following, to manage outpatient IV antibiotics. -Continue symptomatic care and pain management. -Fall precautions -Wound/dressing management, DVT prophylaxis, weightbearing, and PT/OT per primary admitting orthopedic surgery team. Parkinson's disease -Continue carbidopa levodopa 25-250 mg tablets 4 times daily along with entacapone 200 mg 4 times daily. -Provide safe and supportive care and assistance as needed. -Maintain fall precautions. Hypertension -Continue daily medication regimen with hydrochlorothiazide 12.5 mg nightly and lisinopril 40 mg nightly. Obstructive sleep apnea -Continue CPAP nightly and while napping. Data and imaging reviewed: Vital signs reviewed. Vital signs reviewed. Blood pressure 151/81, heart rate 60, respiratory rate 16, temp 98.0 F, and SpO2 of 93% on room air. Labs reviewed.. CBC remains unremarkable. BMP showing slightly elevated anion gap of 13.20 otherwise normal findings. Blood glucose 93. Magnesium 2.1. And liver profile unremarkable. Wound culture positive for Enterococcus faecalis and Staphylococcus aureus DVT prophylaxis per primary admitting orthopedic surgery team, patient currently on aspirin 325 mg daily. Thank you for allowing us to participate in the care of this pleasant patient. Do not hesitate to contact us with questions. Someone can be reached from the [facility] hospitalist group all hours of the day at [phone] or via perfect serve. Patient was seen independently by Nurse Practitioner. This document was prepared using [employer] dictation software. Please allow for errors in director of casino while rare they do occur. I reviewed the documentation as provided by the NOA above, who is the original author of this note. I agree with the documented assessment and plan, with the following changes: none. Objective - Vital Signs Vital signs: Vital Signs Temp 98.0 F 06/27/24 07:45 Pulse 60 06/27/24 07:45 Resp 16 06/27/24 07:45 BP 151/81 06/27/24 07:45 Pulse Ox 93 L 06/27/24 07:45 FiO2 Intake & Output 06/26/24 06/27/24 06/27/24 18:59 06:59 18:59 Intake Total 440 Balance 440 Intake: Intake, IV Titration 440 Amount Ampicillin-Sulbactam 3 gm 200 In Sodium Chloride 0.9% 100 ml @ 200 mls/hr IVPB Q6HR [facility] Rx#:[id number] Lactated Ringers 1,000 ml 240 @ 20 mls/hr IV .Q24H [facility] Rx#:[id number] Other: # Voids 3 - Labs CBC & Chem 7: 06/26/24 03:16 06/26/24 03:16 Labs: Microbiology - Last 24 Hours (Table) 06/23/24 12:11 Gram Stain - Final Other - Other Wound Culture - Final Staphylococcus aureus Enterococcus faecalis 06/23/24 12:11 Gram Stain - Final Other - Other Wound Culture - Final Enterococcus faecalis Staphylococcus aureus
== END 2024-06-27 14:47 | disposition home health service (06) | DRG 501 ==
LOC: OR 10:09 → 4SSUR 13:40 → OR 06-26 08:10
PROVIDERS: ADMIT Orthopaedic Surgery; ATTEND Orthopaedic Surgery
PROC: 3E1U38Z Irrigation of Joints using Irrigating Substance, Percutaneous Approach (ICD-10-PCS; 2024-06-26)
PROC: 0MBN0ZZ Excision of Right Knee Bursa and Ligament, Open Approach (ICD-10-PCS; principal; 2024-06-26 12:35)
DX: M71.161 Other infective bursitis, right knee (principal); M00.861 Arthritis due to other bacteria, right knee; Z85.828 Personal history of other malignant neoplasm of skin; I10 Essential (primary) hypertension; G20.A1 Parkinson's disease without dyskinesia, without mention of fluctuations; F17.210 Nicotine dependence, cigarettes, uncomplicated; B95.2 Enterococcus as the cause of diseases classified elsewhere; B95.61 Methicillin susceptible Staphylococcus aureus infection as the cause of diseases classified elsewhere; G47.33 Obstructive sleep apnea (adult) (pediatric); Z87.19 Personal history of other diseases of the digestive system; Z90.49 Acquired absence of other specified parts of digestive tract
CPT/HCPCS: 36573; 80048; 80053; 83735; 85025; 87070; 87075; 87077; 87186; 87205

== ENCOUNTER 2025-02-06 13:35 | Day surgery (SDC) | payer MEDICARE, OTHER ==
--- NOTE | 2025-02-05 08:36 | P.HPOR ---
History of Present Illness H&P Date: 02/05/25 Chief Complaint: Right knee pain and swelling The patient presents with a 3-day history of increasing redness and swelling about his right knee. He thinks he may have stuck a thorn in the knee while cutting the grass. He previously underwent irrigation and debridement of a right knee septic prepatellar bursitis. Initially he had resolution of his symptoms until 3 days ago. He denies fevers or chills. Review of Systems Per HPI Past Medical History Past Medical History: Cancer, Hypertension, Sleep Apnea/CPAP/BIPAP Additional Past Medical History / Comment(s): swelling and drainage rt knee, parkinson's,uses cpap,rash to groin area,skin basal cell History of Any Multi-Drug Resistant Organisms: None Reported Past Surgical History: Cholecystectomy, Hernia Repair Additional Past Surgical History / Comment(s): umbilical hernia Past Anesthesia/Blood Transfusion Reactions: No Reported Reaction, Motion Sickness Smoking Status: Current some day smoker - Past Family History Mother Family Medical History: No Reported History Father Family Medical History: Cancer Additional Family Medical History / Comment(s): skin Medications and Allergies Home Medications Medication Instructions Recorded Confirmed Type ALPRAZolam [Xanax] 0.5 mg PO BID PRN 10/11/20 06/23/24 History Citalopram Hydrobromide [CeleXA] 40 mg PO HS@2200 10/11/20 06/23/24 History hydroCHLOROthiazide 12.5 mg PO HS@2200 10/11/20 06/23/24 History lisinopriL 40 mg PO HS@2200 10/11/20 06/23/24 History Carbidopa/Levodopa 1 tab PO QID 06/20/24 06/23/24 History [Carbidopa/Levodopa 25-250 Tab] Cholecalciferol [Vitamin D3 (25 250 mcg PO DAILY 06/20/24 06/20/24 History Mcg = 1000 Iu)] Entacapone [Comtan] 200 mg PO QID 06/20/24 06/23/24 History Famotidine [Pepcid] 40 mg PO HS 06/20/24 06/23/24 History Garlic 2,000 mg PO DAILY 06/20/24 06/20/24 History L.acidoph,Paracasei, B.lactis 2 each PO DAILY 06/20/24 06/20/24 History [Probiotic] Love Your Brain Supp 1 dose PO DAILY 06/20/24 06/20/24 History Pramipexole [Mirapex] 0.5 mg PO TID 06/20/24 06/23/24 History oxyBUTYnin chloride [oxyBUTYnin 5 mg PO HS 06/20/24 06/23/24 History chloride ER] Ampicillin-Sulbactam [Unasyn 3 gm 3 gm IVPB Q6HR #56 each 06/26/24 Rx vial] Allergies Allergy/AdvReac Type Severity Reaction Status Date / Time No Known Allergies Allergy Verified 06/23/24 10:39 Physical Examination - Knee right Appearance: other (Moderate prepatellar swelling and erythema.) Tenderness with palpation: anterior Pain: with flexion ROM: extension: -10 degrees ROM: flexion: 100 degrees Strength: flexion: 5/5 Results The patient is a well-developed well-nourished male approximately 5 foot 10, 250 pounds of endomorphic habitus. HEENT exam is nonfocal, neck is supple. He has painless passive motion of the right hip. Straight leg raise is negative. He has significant prepatellar swelling and erythema about the right knee. There is a small scab. There is mild warmth. Homans is negative. His distal neurovascular appears intact in the right lower extremity. He has no medial or lateral joint line tenderness about the right knee. - Labs Labs: CRP 1.0, sed rate 22, BBC count 8.07 previous microbiology/culture showed Staph aureus/Enterococcus faecalis Assessment and Plan Assessment: Recurrent right knee septic prepatellar bursitis Plan: I talked to the patient and his regarding his condition along with treatment options. At this point he opts to proceed with surgery. Will plan to proceed with incision and drainage with irrigation and debridement of his right septic prepatellar bursitis. We will consult infectious disease while he is in the hospital. Risks and benefits were discussed at length in layman's terms.
[2025-02-05 09:38] VITALS: BMI 36.8
[~2025-02-06 13:35] MED LIST changes: +CARBIDOPA-LEVODOPA 25-250 MG 1 EACH TAB PO SCH; -HYDROmorphone 0.5 MG/0.5 ML SYRINGE IVP PRN; -MIDAZOLAM 2 MG/2 ML VIAL IV PRN
[2025-02-06] MEDS: LACTATED RINGERS 1,000 ML BAG IV STA (14:03)
[2025-02-06] MEDS: IV FLUID CONTINUATION 1,000 ML IV ONE (14:03)
[2025-02-06] MEDS: DEXAMETHASONE SOD PHOSPHATE 4 MG/ML 1 ML VIAL IVP STA (14:04)
[2025-02-06] MEDS: ONDANSETRON 4 MG/2 ML VIAL IVP STA (14:04)
[2025-02-06] MEDS ORDERED: PROPOFOL 10 MG/ML 20 ML VIAL IV ONE (14:09)
[2025-02-06] MEDS ORDERED: fentaNYL (PF) 50 MCG/ML 2 ML AMP ONE (14:09)
[2025-02-06] MEDS ORDERED: MIDAZOLAM 2 MG/2 ML VIAL ONE (14:09)
[2025-02-06] MEDS ORDERED: LIDOCAINE 1% INJ 10MG/ML (20 ML MDV) ONE (14:09)
[2025-02-06] MEDS ORDERED: PHENYLEPHRINE-0.9% NACL SYG 1,000 MCG/10 ML SYRINGE ONE (14:09)
[2025-02-06] MEDS ORDERED: SUCCINYLCHOLINE CHLORIDE 200 MG/10 ML VIAL IV ONE (14:09)
[2025-02-06] MEDS: ceFAZolin 2 GM in DEXTROSE 5% IN WATER 50 ML IVPB PRN (14:11)
[2025-02-06] MEDS: ceFAZolin 3,000 MG in SODIUM CHLORIDE 0.9% IRRIGATIO 3,000 ML IRRIGATION ONE (14:18)
[2025-02-06] MEDS ORDERED: hydrOXYzine pamoate 25 MG CAP PO PRN (14:51)
[2025-02-06] MEDS ORDERED: HYDROmorphone 0.5 MG/0.5 ML SYRINGE IVP PRN (14:51)
[2025-02-06] MEDS ORDERED: SENNOSIDES-DOCUSATE SODIUM 1 EACH TAB PO PRN (14:51)
--- NOTE | 2025-02-06 14:54 | P.OP ---
Date of Procedure: 02/06/25 Preoperative Diagnosis: Recurrent right knee septic prepatellar bursitis Postoperative Diagnosis: Same Procedure(s) Performed: Incision and drainage/irrigation and debridement right knee septic prepatellar bursitis Anesthesia: RAMY Surgeon: Camilo Weeks Nursing Home Manager #1: Xavier Lion Estimated Blood Loss (ml): 3 Pathology: other (Deep cultures) Condition: stable Disposition: PACU Indications for Procedure: The patient is a 69-year-old male who presents with a 1 week history of increasing redness and drainage from his right knee. He has a history of a previous irrigation and debridement for a septic prepatellar bursitis last year. Initially he did well, however appears to have recurrence. A discussion of the risks and benefits of operative intervention was made with the patient and his . He opted to proceed with surgery. Operative risks include persistence of infection and possible need for subsequent procedures was discussed. Informed consent was obtained. Operative Findings: As below Description of Procedure: The patient was brought to the operating room, and after induction of general anesthesia the right lower extremity was prepped and draped in normal fashion. The tourniquet was inflated to 270 mmHg. A 4 cm incision was then made centered over the anterior aspect of the right knee over the prepatellar region. There was a central draining sinus that was completely ellipsed/excised sharply with a scalpel. This is taken down to the level of the patellar tendon and the anterior patella. Significant bursal thickening was noted. This was excised sharply. There is no significant purulent drainage. Deep cultures were obtained. The wound was copiously irrigated with pulsatile lavage utilizing 3 L of saline. The subcutaneous tissues reapproximated interrupted 2-0 Vicryl sutures. The skin was reapproximated with simple 3-0 nylon sutures. A sterile dressing was applied. The tourniquet was deflated less than 20 minutes total tourniquet time. The patient was awoken from general anesthesia and transferred to the recovery room in good condition. Blood loss is estimated 3 cc. No complications were incurred. Sponge and needle counts were correct at the end of the case.
[2025-02-06] MEDS: HYDROmorphone 0.5 MG/0.5 ML SYRINGE IVP PRN (15:21)
[2025-02-06] MEDS: Acetaminophen-Codeine 300-30mg TAB PO PRN (19:01)
[2025-02-06] MEDS ORDERED: ALPRAZolam 0.5 MG TAB PO PRN (20:04)
[2025-02-06] MEDS: CARBIDOPA-LEVODOPA 25-250 MG 1 EACH TAB PO SCH ×2 (20:04→23:15)
--- NOTE | 2025-02-06 21:37 | P.CONS ---
History of Present Illness - Reason for Consult Consult date: 02/06/25 Consulted for medical management Requesting physician: Camilo Weeks - Chief Complaint Swelling and redness of the right knee - History of Present Illness This is a 69-year-old male patient with history of right knee septic peripatellar bursitis, essential hypertension, obstructive sleep apnea, Parkinson disease, basal cell cancer of the skin. Patient is admitted under Ortho for management of recurrent of right knee septic peripatellar bursitis. History goes back to June 2024 where he failed conservative treatment and was admitted for I&D of the right knee. Patient presents where he thinks that he had a stuck a thorn in the knee while cutting grass . Patient presents again with right knee swelling, erythema and tenderness. No reports of chills or fever. Does report drainage. Past medical history : history of right knee septic peripatellar bursitis, essential hypertension, obstructive sleep apnea, Parkinson disease, basal cell cancer of the skin. Past surgical history: Cholecystectomy and hernia repair Social history : Daily tobacco use of 1 pack/day, no alcohol use and no recreational drug use Review of system : Positive for right knee swelling and erythema Physical exam : General: nontoxic, no distress, appears at stated age Derm: warm, dry, intact Head: atraumatic, normocephalic, symmetric Eyes: EOMI, anicteric sclera Mouth: no lip lesion, mucus membranes moist Cardiovascular: S1 S2 reg, no murmur, rubs, or gallops Lungs: CTA bilateral, no rales, no accessory muscle use Abdominal: soft, non-tender to palpataion, no appreciable organomegaly Extremities: right knee surgical dressing Assessment and plan : -Recurrent right knee septic peripatellar bursitis : Ortho consulted and patient status post I&D Currently on cefazolin 2g q 8 and patient will need ID consult Pending culture According to Ortho note previous cultures were showing MSSA and Enterococcus faecalis (June 2024) - Chronic medical problems including essential hypertension/Parkinson disease/obstructive sleep apnea : Will do med rec and continue home medication CODE STATUS is full code DVT prophylaxis on SCD Time spent : 40 min Past Medical History Past Medical History: Cancer, GERD/Reflux, Hypertension, Osteoarthritis (OA), Sleep Apnea/CPAP/BIPAP Additional Past Medical History / Comment(s): Swelling and drainage right knee. Parkinson's. CPAP use. Hx basal cell skin cancer. History of Any Multi-Drug Resistant Organisms: None Reported Past Surgical History: Cholecystectomy, Hernia Repair, Orthopedic Surgery Additional Past Surgical History / Comment(s): Umbilical hernia repair, I&D right knee. Past Anesthesia/Blood Transfusion Reactions: No Reported Reaction, Motion Sickness Additional Past Anesthesia/Blood Transfusion Reaction / Comm: Mild motion sickness. Past Psychological History: Anxiety Smoking Status: Current some day smoker Past Alcohol Use History: Occasional Additional Past Alcohol Use History / Comment(s): Smokes a cigar approximately 3 times per week, smoked cigarettes for approximately 4 years in College. Drinks 2 cocktails 5 times per week or less. Past Drug Use History: None Reported - Past Family History Mother Family Medical History: No Reported History Father Family Medical History: Cancer Additional Family Medical History / Comment(s): Skin cancer. Patient has no siblings. Medications and Allergies Home Medications Medication Instructions Recorded Confirmed Type ALPRAZolam [Xanax] 0.5 mg PO BID PRN 10/11/20 02/05/25 History Citalopram Hydrobromide [CeleXA] 40 mg PO HS@2200 10/11/20 02/05/25 History hydroCHLOROthiazide 12.5 mg PO HS@2200 10/11/20 02/05/25 History lisinopriL 40 mg PO HS@2200 10/11/20 02/05/25 History Carbidopa/Levodopa 1 tab PO QID 06/20/24 02/05/25 History [Carbidopa/Levodopa 25-250 Tab] Cholecalciferol [Vitamin D3 (25 250 mcg PO DAILY 06/20/24 02/05/25 History Mcg = 1000 Iu)] Entacapone [Comtan] 200 mg PO QID 06/20/24 02/05/25 History Famotidine [Pepcid] 40 mg PO HS 06/20/24 02/05/25 History Garlic 2,000 mg PO DAILY 06/20/24 02/05/25 History L.acidoph,Paracasei, B.lactis 2 each PO DAILY 06/20/24 02/05/25 History [Probiotic] Pramipexole [Mirapex] 0.5 mg PO TID 06/20/24 02/05/25 History oxyBUTYnin chloride [oxyBUTYnin 5 mg PO HS 06/20/24 02/05/25 History chloride ER] Doxycycline (Unknown Dose) 1 tab PO BID 02/05/25 02/05/25 History Allergies Allergy/AdvReac Type Severity Reaction Status Date / Time No Known Allergies Allergy Verified 02/06/25 13:57 Physical Exam Vitals: Vital Signs Temp Pulse Resp BP Pulse Ox 02/06/25 18:21 97.8 F 66 18 126/85 96 02/06/25 17:00 54 L 16 116/64 98 02/06/25 16:30 51 L 16 109/57 97 02/06/25 16:00 52 L 16 98/46 99 02/06/25 15:45 52 L 16 116/64 98 02/06/25 15:30 52 L 16 112/57 96 02/06/25 15:15 54 L 16 102/53 98 02/06/25 15:00 96.8 F L 60 16 120/59 96 02/06/25 14:00 98.9 F 65 16 126/73 94 L Intake and Output 02/06/25 02/06/25 02/06/25 06:59 14:59 22:59 Intake Total 451 500 Output Total 3 Balance 448 500 Intake: IV 451 500 Output: Estimated Blood Loss 3 Other: Weight 118.6 kg 118.6 kg
[2025-02-06] MEDS: ceFAZolin 2 GM in DEXTROSE 5% IN WATER 50 ML IVPB SCH (22:25)
[2025-02-06] MEDS: ENTACAPONE 200 MG TAB PO SCH (22:25)
[2025-02-06] MEDS: PRAMIPEXOLE 0.5 MG TAB PO SCH (22:25)
[2025-02-06 23:38] LABS: Basophils # (A) 0.02 10*3/uL (0.00-0.10); Basophils % (A) 0.3 %; HCT 38.4 % (39.6-50.0); HGB 12.9 g/dL (13.0-17.0); Lymphocytes # (A) 0.53 10*3/uL (0.90-5.00); Lymphocytes % (A) 8.9 %; MCH 30.1 pg (27.0-32.0); MCHC 33.6 g/dL (32.0-37.0); MCV 89.7 fL (80.0-97.0); Mean Platelet Volume 9.4 fL (9.5-12.2); Monocytes # (A) 0.21 10*3/uL (0.20-1.00); Monocytes % (A) 3.5 %; Neutrophils # (A) 5.17 10*3/uL (1.80-7.70); Platelet Count 224 10*3/uL (140-440); RBC 4.28 10*6/uL (4.40-5.60); RDW 13.2 % (11.5-14.5); WBC 5.95 10*3/uL (4.50-10.00)
[2025-02-06 23:57] LABS: African American GFR (CKD) >90 (>60 ml/min/1.73 sqM); Anion Gap 6 mmol/L; Blood Urea Nitrogen 25 mg/dL (9-20); Calcium 9.6 mg/dL (8.4-10.2); Carbon Dioxide 26 mmol/L (22-30); Chloride 105 mmol/L (98-107); Glucose 134 mg/dL (74-99); Non-African American GFR(CKD) >90 (>60 ml/min/1.73 sqM); Potassium 4.3 mmol/L (3.5-5.1); Sodium 137 mmol/L (137-145)
[2025-02-07] MEDS ORDERED: HYDROmorphone 0.5 MG/0.5 ML SYRINGE IVP PRN (07:00)
[2025-02-07 10:12] LABS: HCT 40.9 % (39.6-50.0); HGB 13.6 g/dL (13.0-17.0); MCH 29.8 pg (27.0-32.0); MCHC 33.3 g/dL (32.0-37.0); MCV 89.7 fL (80.0-97.0); Mean Platelet Volume 9.5 fL (9.5-12.2); Platelet Count 228 10*3/uL (140-440); RBC 4.56 10*6/uL (4.40-5.60); RDW 13.2 % (11.5-14.5); WBC 7.81 10*3/uL (4.50-10.00)
[2025-02-07 10:23] LABS: African American GFR (CKD) >90 (>60 ml/min/1.73 sqM); Anion Gap 8 mmol/L; Blood Urea Nitrogen 22 mg/dL (9-20); Calcium 9.9 mg/dL (8.4-10.2); Carbon Dioxide 27 mmol/L (22-30); Chloride 103 mmol/L (98-107); Glucose 121 mg/dL (74-99); Magnesium 2.1 mg/dL (1.6-2.3); Non-African American GFR(CKD) >90 (>60 ml/min/1.73 sqM); Potassium 4.4 mmol/L (3.5-5.1); Sodium 138 mmol/L (137-145)
--- NOTE | 2025-02-07 12:39 | P.PN ---
Subjective Progress Note Date: 02/07/25 Principal diagnosis: Recurrent right knee septic prepatellar bursitis Patient was seen at bedside this morning sitting up in chair with dressing present over right knee. Patient says he has been walking under his own power since surgery yesterday without issue. He says he has been urinating on his own without problem. No bowel movement yet. Patient denies any other issues at this time Objective - Vital Signs Vital signs: Vital Signs Temp 97.6 F 02/07/25 07:58 Pulse 66 02/07/25 08:00 Resp 17 02/07/25 08:00 BP 117/64 02/07/25 07:58 Pulse Ox 95 02/07/25 07:58 FiO2 Intake & Output 02/06/25 02/07/25 02/07/25 18:59 06:59 18:59 Intake Total 951 240 Output Total 3 Balance 948 240 Weight 118.6 kg Intake: IV 951 Oral 240 Output: Estimated Blood Loss 3 Other: Voiding Method Toilet Toilet # Voids 2 1 # Bowel Movements 1 - Exam Right knee: Incision is clean, dry, and intact. The sutures are in good condition. There is minimal soft tissue swelling and ecchymosis surrounding the medial and lateral aspects of the incision. Calf is soft, no tenderness with palpation. P lantar flexion, dorsiflexion, EHL, FHL are intact. Sensory exam to light touch throughout the extremity is intact, dorsal pedis pulses 2+. - Labs CBC & Chem 7: 02/07/25 09:28 02/07/25 09:28 Labs: Abnormal Lab Results - Last 24 Hours (Table) 02/06/25 02/06/25 02/07/25 Range/Units 23:19 23:19 09:28 RBC 4.28 L (4.40-5.60) 10*6/uL Hgb 12.9 L (13.0-17.0) g/dL Hct 38.4 L (39.6-50.0) % MPV 9.4 L (9.5-12.2) fL Lymphocytes # 0.53 L (0.90-5.00) 10*3/uL Eosinophils # 0.00 L (0.04-0.35) 10*3/uL BUN 25 H 22 H (9-20) mg/dL Glucose 134 H 121 H (74-99) mg/dL Microbiology - Last 24 Hours (Table) 02/06/25 13:38 Gram Stain - Preliminary Knee - Right Wound Culture - Preliminary 02/06/25 13:40 Gram Stain - Preliminary Knee - Right Wound Culture - Preliminary Assessment and Plan Assessment: 1. Recurrent right knee septic prepatellar bursitis - Postop day 1 status post Incision and drainage/irrigation and debridement right knee septic prepatellar bursitis Plan: 1. Recurrent right knee septic prepatellar bursitis - Incision and drainage/irrigation and debridement right knee septic prepatellar bursitis surgery performed yesterday, 02/06/2025. Patient stable at bedside this morning with Jason bandage present over knee. Incision appears to be clean, dry, intact. Assess dressing daily. Change as needed. Weightbearing as tolerated with walker as needed. Oral pain medication. Awaiting ID consult. Cultures pending at this time. Gram stain negative. Continue with Kefzol. We will continue to follow patient during stay in hospital. Likely discharge after cultures are finalized 2. Appreciate medical management 3. Pain management - tylenol with codeine 4. DVT prophylaxis - aspirin 5. GI prophylaxis - senna 6. PT/OT -weightbearing as tolerated with walker 7. Encourage incentive spirometer use 8. Discharge planning -pending Time with Patient: Less than 30
[2025-02-07] MEDS ORDERED: VANCOMYCIN IV PER PHARMACY 1 EACH MISC MISCELLANE PRN (14:44)
[2025-02-07] MEDS: VANCOMYCIN 2,500 MG in SODIUM CHLORIDE 0.9% 500 ML 500 ML IVPB ONE (16:19)
--- NOTE | 2025-02-07 18:03 | P.PN ---
Subjective Progress Note Date: 02/07/25 Hospital course: Patient is a very pleasant 69-year-old male with a past medical history of Parkinson's disease, hypertension, basal cell carcinoma status post surgical removal, and obstructive sleep apnea CPAP dependent nightly. He is admitted under orthopedic surgery team and is status post incision and drainage with irrigation and debridement of right knee secondary to recurrent septic prepatellar bursitis. Surgical procedure was completed by Dr. Weeks. We were consulted for medical management throughout hospitalization. Physical exam: Patient was seen and fully evaluated at bedside this morning. He is postoperative day 1 and was sitting up in the chair at bedside. Patient reports mild to moderate postoperative pain reports of burning and constant sharp pain in right knee. Denies having any other complaints including headache, lightheadedness, dizziness, chest pain, palpitations, shortness of breath, or experiencing any numbness/tingling/weakness in his extremities. He reports u rinating without any difficulties and denies having any postoperative nausea or vomiting. Vital signs reviewed and stable. Gener.al: Nontoxic, no distress and appears stated age. Derm: Skin warm and dry, normal coloration for ethnicity. Head: Atraumatic, normocephalic and symmetric. Eyes: EOM's intact, no lid lag, and anicteric sclera Mouth: no lip lesions, mucus membranes moist Cardiovascular: regular rate and rhythm with normal S1S2, no murmur, positive posterior tibial pulses bilaterally, and cap refill < 2 seconds. Lungs: Respirations even, regular, and unlabored on room air. Lungs CTA bilaterally, no rhonchi, no rales, no wheezing, and no accessory muscle usage. Abdominal: soft, nontender to palpation, no guarding, no appreciable organomegaly Ext: No gross muscle atrophy, no edema, no contractures. Movement and sensation intact. Postsurgical dressing and Jason wrap in place to right knee. Neuro: Speech clear, face symmetrical and CN II-XII grossly intact with no noted focal neuro deficits. Patient with upper extremity resting tremors and facial tremors secondary to Parkinson's. Psych: Alert and oriented to person, place, time, and situation. Appropriate and pleasant affect. Assessment and Plan of Care: Right knee recurrent septic prepatellar bursitis Status post incision and drainage with debridement and irrigation of right knee -Patient is status post incision and drainage with debridement and irrigation. -Wound culture pending -Continue IV antibiotics with Unasyn 3 g every 6 hours and vancomycin 1750 mg every 12 hours with close monitoring of renal function and vancomycin trough for any signs of vancomycin associated renal toxicity -Infectious disease following, reviewed documentation in chart -Continue symptomatic care and pain management. -Fall precautions -Wound/dressing management, DVT prophylaxis, weightbearing, and PT/OT per primary admitting orthopedic surgery team. Parkinson's disease -Continue carbidopa levodopa 25-250 mg tablets 4 times daily along with entacapone 200 mg 4 times daily. -Provide safe and supportive care and assistance as needed. -Maintain fall precautions. Hypertension -Continue daily medication regimen with hydrochlorothiazide 12.5 mg nightly and lisinopril 40 mg nightly. Obstructive sleep apnea -Continue CPAP nightly and while napping. Data and imaging reviewed: Morning labs reviewed. CBC unremarkable with WBC count of 7.81, hemoglobin 13.6, platelet count of 228. BMP showing mild prerenal azotemia with BUN of 22 otherwise normal findings. Blood glucose 121. Magnesium 2.1. Vital signs reviewed. Blood pressure 117/64, heart rate 66, respiratory rate 17, temp 97.6 F, and SpO2 of 95% on room air Thank you for allowing us to participate in the care of this pleasant patient. Do not hesitate to contact us with questions. Someone can be reached from the [facility] hospitalist group all hours of the day at [phone] or via [employer]. Patient was seen independently by Nurse Pracitioner. This document was prepared using [employer] dictation software. Please allow for errors in shipping track supervisor, while rare they do occur. Wellington Pyle NP rendered care for this patient independently, reviewed the findings and plan as documented in the note above and agree with plan. I did not physically speak with or examine the patient on this date. Objective - Vital Signs Vital signs: Vital Signs Temp 97.6 F 02/07/25 07:58 Pulse 66 02/07/25 07:58 Resp 17 02/07/25 07:58 BP 117/64 02/07/25 07:58 Pulse Ox 95 02/07/25 07:58 FiO2 Intake & Output 02/06/25 02/07/25 02/07/25 18:59 06:59 18:59 Intake Total 951 240 Output Total 3 Balance 948 240 Weight 118.6 kg Intake: IV 951 Oral 240 Output: Estimated Blood Loss 3 Other: Voiding Method Toilet # Voids 2 1 # Bowel Movements 1 - Labs CBC & Chem 7: 02/07/25 09:28 02/07/25 09:28 Labs: Abnormal Lab Results - Last 24 Hours (Table) 02/06/25 02/06/25 Range/Units 23:19 23:19 RBC 4.28 L (4.40-5.60) 10*6/uL Hgb 12.9 L (13.0-17.0) g/dL Hct 38.4 L (39.6-50.0) % MPV 9.4 L (9.5-12.2) fL Lymphocytes # 0.53 L (0.90-5.00) 10*3/uL Eosinophils # 0.00 L (0.04-0.35) 10*3/uL BUN 25 H (9-20) mg/dL Glucose 134 H (74-99) mg/dL Microbiology - Last 24 Hours (Table) 02/06/25 13:38 Gram Stain - Preliminary Knee - Right Wound Culture - Preliminary 02/06/25 13:40 Gram Stain - Preliminary Knee - Right Wound Culture - Preliminary
[2025-02-07] MEDS: AMPICILLIN-SULBACTAM 3 GM in SODIUM CHLORIDE 0.9% 100 ML IVPB SCH (20:01)
[2025-02-07] MEDS: CITALOPRAM HYDROBROMIDE 20 MG TAB PO SCH (22:09)
[2025-02-07] MEDS: lisinopriL 20 MG TAB PO SCH (22:09)
[2025-02-07] MEDS: hydroCHLOROthiazide 25 MG TAB PO SCH (22:10)
[2025-02-07] MEDS: FAMOTIDINE 20 MG TAB PO SCH (22:10)
[2025-02-08] MEDS: VANCOMYCIN 1,750 MG in SODIUM CHLORIDE 0.9% 500 ML 500 ML IVPB SCH (06:49)
[2025-02-08 08:53] LABS: HGB 12.8 g/dL (13.0-17.0); MCH 29.6 pg (27.0-32.0); MCV 92.4 FL (80.0-97.0); Mean Platelet Volume 9.8 FL (9.5-12.2); NRBC Per 100 WBC 0 X 10*3/uL (0.00-0.01); Platelet Count 203 X 10*3/uL (140-440); RBC 4.33 X 10*6/uL (4.40-5.60); RDW 13.2 % (11.5-14.5); WBC 5.68 X 10*3/uL (4.50-10.00)
[2025-02-08] MEDS: LACTOBACILLUS ACIDOPHILUS/PECT 1 EACH CAPSULE PO SCH (08:56)
[2025-02-08 09:07] LABS: BUN/Creat Ratio 19.89 Ratio (12.00-20.00); Blood Urea Nitrogen 17.9 mg/dL (9.0-27.0); Calcium 8.9 mg/dL (8.7-10.3); Carbon Dioxide 26.6 mmol/L (21.6-31.8); Chloride 108 mmol/L (96-109); Glucose 99 mg/dL (70-110); Magnesium 2.2 mg/dL (1.5-2.4); Potassium 4.4 mmol/L (3.5-5.5); Sodium 143 mmol/L (135-145)
--- NOTE | 2025-02-08 09:56 | P.CONS ---
History of Present Illness - Reason for Consult Consult date: 02/07/25 r knee septic bursitis Requesting physician: Xavier Lion - Chief Complaint R knee pain , swelling and drianage x days - History of Present Illness Patient is a 69-year-old male with a past medical history significant for GERD/Reflux, Hypertension, Osteoarthritis (OA), Sleep Apnea/CPAP/BIPAP previous history of right knee septic prepatellar bursitis culture that was positive for MSSA and Enterococcus faecalis that was last year patient was not having a problem with the right knee area swelling and redness last week that apparently progressed over the weekend and did have significant purulent drainage patient subsequently has been admitted to the hospital he was taken to the OR and is status post I&D and debridement of the right knee septic prepatellar bursitis and deep culture have been obtained patient did received cefazolin perioperatively infectious disease was consulted for further management of antibiotic therapy patient denies having any fever or any chills patient is breathing comfortably on room air denies any chest pain shortness of breath or cough denies having any nausea no vomiting no abdominal pain or diarrhea pain to the right is mostly dull aching mild to moderate intensity without any radiation Review of Systems Positive point and negatives has been mentioned in the HPI, complete review of systems was performed and all other systems are negative Past Medical History Past Medical History: Cancer, GERD/Reflux, Hypertension, Osteoarthritis (OA), Sleep Apnea/CPAP/BIPAP Additional Past Medical History / Comment(s): Swelling and drainage right knee. Parkinson's. CPAP use. Hx basal cell skin cancer. History of Any Multi-Drug Resistant Organisms: None Reported Past Surgical History: Cholecystectomy, Hernia Repair, Orthopedic Surgery Additional Past Surgical History / Comment(s): Umbilical hernia repair, I&D right knee. Past Anesthesia/Blood Transfusion Reactions: No Reported Reaction, Motion Sickness Additional Past Anesthesia/Blood Transfusion Reaction / Comm: Mild motion sickness. Past Psychological History: Anxiety Smoking Status: Current some day smoker Past Alcohol Use History: Occasional Additional Past Alcohol Use History / Comment(s): Smokes a cigar approximately 3 times per week, smoked cigarettes for approximately 4 years in College. Drinks 2 cocktails 5 times per week or less. Past Drug Use History: None Reported - Past Family History Mother Family Medical History: No Reported History Father Family Medical History: Cancer Additional Family Medical History / Comment(s): Skin cancer. Patient has no siblings. Medications and Allergies Home Medications Medication Instructions Recorded Confirmed Type ALPRAZolam [Xanax] 0.5 mg PO BID PRN 10/11/20 02/05/25 History Citalopram Hydrobromide [CeleXA] 40 mg PO HS@2200 10/11/20 02/05/25 History hydroCHLOROthiazide 12.5 mg PO HS@2200 10/11/20 02/05/25 History lisinopriL 40 mg PO HS@2200 10/11/20 02/05/25 History Carbidopa/Levodopa 1 tab PO QID 06/20/24 02/05/25 History [Carbidopa/Levodopa 25-250 Tab] Cholecalciferol [Vitamin D3 (25 250 mcg PO DAILY 06/20/24 02/05/25 History Mcg = 1000 Iu)] Entacapone [Comtan] 200 mg PO QID 06/20/24 02/05/25 History Famotidine [Pepcid] 40 mg PO HS 06/20/24 02/05/25 History Garlic 2,000 mg PO DAILY 06/20/24 02/05/25 History L.acidoph,Paracasei, B.lactis 2 each PO DAILY 06/20/24 02/05/25 History [Probiotic] Pramipexole [Mirapex] 0.5 mg PO TID 06/20/24 02/05/25 History oxyBUTYnin chloride [oxyBUTYnin 5 mg PO HS 06/20/24 02/05/25 History chloride ER] Doxycycline (Unknown Dose) 1 tab PO BID 02/05/25 02/05/25 History Allergies Allergy/AdvReac Type Severity Reaction Status Date / Time No Known Allergies Allergy Verified 02/06/25 13:57 Physical Exam Vitals: Vital Signs Temp Pulse Resp BP Pulse Ox 02/07/25 08:00 66 17 02/07/25 07:58 97.6 F 66 17 117/64 95 02/07/25 00:33 98.2 F 60 17 112/61 93 L 02/06/25 19:56 66 114/68 94 L 02/06/25 19:27 67 109/54 96 02/06/25 19:12 68 105/58 96 02/06/25 18:56 68 115/67 98 02/06/25 18:42 63 112/62 95 02/06/25 18:27 63 111/57 95 02/06/25 18:21 97.8 F 66 18 126/85 96 02/06/25 17:00 54 L 16 116/64 98 02/06/25 16:30 51 L 16 109/57 97 02/06/25 16:00 52 L 16 98/46 99 02/06/25 15:45 52 L 16 116/64 98 02/06/25 15:30 52 L 16 112/57 96 02/06/25 15:15 54 L 16 102/53 98 02/06/25 15:00 96.8 F L 60 16 120/59 96 02/06/25 14:00 98.9 F 65 16 126/73 94 L Intake and Output 02/06/25 02/07/25 02/07/25 22:59 06:59 14:59 Intake Total 740 Balance 740 Intake: IV 500 Oral 240 Other: Voiding Method Toilet Toilet # Voids 2 1 # Bowel Movements 1 Weight 118.6 kg GENERAL DESCRIPTION: Elderly male lying in bed, no distress. No tachypnea or accessory muscle of respiration use. HEENT: Shows Pallor , no scleral icterus. Oral mucous membrane is dry. NECK: Trachea central, no thyromegaly. LUNGS: Unlabored breathing. Clear to auscultation anteriorly. No wheeze or crackle. HEART: S1, S2, regular rate and rhythm. No loud murmur ABDOMEN: Soft, no tenderness , guarding or rigidity, no organomegaly EXTREMITIES: Right knee is currently dressed in OR dressing SKIN: No rash, no masses palpable. NEUROLOGICAL: The patient is awake, alert, oriented x3, mood and affect normal. Results CBC & Chem 7: 02/08/25 03:35 02/08/25 03:35 Labs: Abnormal Lab Results - Last 24 Hours (Table) 02/06/25 02/06/25 02/07/25 Range/Units 23:19 23:19 09:28 RBC 4.28 L (4.40-5.60) 10*6/uL Hgb 12.9 L (13.0-17.0) g/dL Hct 38.4 L (39.6-50.0) % MPV 9.4 L (9.5-12.2) fL Lymphocytes # 0.53 L (0.90-5.00) 10*3/uL Eosinophils # 0.00 L (0.04-0.35) 10*3/uL BUN 25 H 22 H (9-20) mg/dL Glucose 134 H 121 H (74-99) mg/dL Microbiology - Last 24 Hours (Table) 02/06/25 13:38 Gram Stain - Preliminary Knee - Right Wound Culture - Preliminary 02/06/25 13:40 Gram Stain - Preliminary Knee - Right Wound Culture - Preliminary Assessment and Plan (1) Failure of outpatient treatment Current Visit: No Status: Acute Code(s): Z78.9 - OTHER SPECIFIED HEALTH STATUS SNOMED Code(s): 666206513 (2) Septic prepatellar bursitis of right knee Current Visit: No Status: Acute Code(s): M71.161 - OTHER INFECTIVE BURSITIS, RIGHT KNEE SNOMED Code(s): 9379191304325196 Plan: 1patient presented to hospital with right knee pain swelling redness and drainage in this patient who did have a previous history of right knee septic bursitis that was in June 2020 for culture at that time were positive for Enterococcus faecalis and MSSA treated with IV antibiotic therapy now with recurrent bursitis status post I&D however the operative report did not mention any extension down to the knee. 2we will empirically covered with Unasyn and vancomycin while waiting for the culture to finalize. Multiple question concern has been also to care has been discussed in detail with the We will follow on clinical condition and cultures to further adjust medication if needed Thank you for this consultation we will follow the patient along with you Dictation was produced using [employer] dictation software. please excuse any gr ammatical, word or spelling errors. Time with Patient: Greater than 30
[2025-02-08] MEDS: ENTACAPONE 200 MG TAB PO SCH (12:10)
[2025-02-08] MEDS: CARBIDOPA-LEVODOPA 25-250 MG 1 EACH TAB PO SCH (12:11)
--- NOTE | 2025-02-08 12:40 | P.PN ---
Subjective Progress Note Date: 02/08/25 Principal diagnosis: Recurrent right knee septic prepatellar bursitis Patient was seen at bedside this morning sitting up in chair with dressing present over right knee. Patient says he has been walking under his own power since surgery without issue. He says he has been urinating on his own without problem. No bowel movement yet. Patient denies any other issues at this time Objective - Vital Signs Vital signs: Vital Signs Temp 98.5 F 02/08/25 07:14 Pulse 60 02/08/25 07:14 Resp 18 02/08/25 07:14 BP 134/71 02/08/25 07:14 Pulse Ox 98 02/08/25 07:14 FiO2 Intake & Output 02/07/25 02/08/25 02/08/25 18:59 06:59 18:59 Other: Voiding Method Toilet Toilet # Voids 1 2 # Bowel Movements 1 - Exam Right knee: Incision is clean, dry, and intact. The sutures are in good condition. There is minimal soft tissue swelling and ecchymosis surrounding the medial and lateral aspects of the incision. Calf is soft, no tenderness with palpation. Plantar flexion, dorsiflexion, EHL, FHL are intact. Sensory exam to light touch throughout the extremity is intact, dorsal pedis pulses 2+. - Labs CBC & Chem 7: 02/08/25 03:35 02/08/25 03:35 Labs: Abnormal Lab Results - Last 24 Hours (Table) 02/07/25 Range/Units 09:28 BUN 22 H (9-20) mg/dL Glucose 121 H (74-99) mg/dL Microbiology - Last 24 Hours (Table) 02/06/25 13:40 Gram Stain - Final Knee - Right Wound Culture - Final 02/06/25 13:38 Gram Stain - Final Knee - Right Wound Culture - Final Assessment and Plan Assessment: 1. Recurrent right knee septic prepatellar bursitis - Postop day 2 status post Incision and drainage/irrigation and debridement right knee septic prepatellar bursitis Plan: 1. Recurrent right knee septic prepatellar bursitis - Incision and draina ge/irrigation and debridement right knee septic prepatellar bursitis surgery performed 02/06/2025. Patient stable at bedside this morning with Jason bandage present over knee. Dressing changed. Incision appears to be clean, dry, intact. Assess dressing daily. Change as needed. Weightbearing as tolerated with walker as needed. Oral pain medication. Awaiting ID recs. Cultures pending at this time. Gram stain negative. Continue with Kefzol. We will continue to follow patient during stay in hospital. Likely discharge after cultures are finalized 2. Appreciate medical management 3. Pain management - tylenol with codeine 4. DVT prophylaxis - aspirin 5. GI prophylaxis - senna 6. PT/OT -weightbearing as tolerated with walker 7. Encourage incentive spirometer use 8. Discharge planning -pending Time with Patient: Less than 30
--- NOTE | 2025-02-08 13:48 | P.PN ---
Subjective Progress Note Date: 02/08/25 Principal diagnosis: Reason for follow-up is right knee septic prepatellar bursitis Patient is a 69-year-old male with a past medical history significant for GERD/Reflux, Hypertension, Osteoarthritis (OA), Sleep Apnea/CPAP/BIPAP previous history of right knee septic prepatellar bursitis culture that was positive for MSSA and Enterococcus faecalis that was last year still having a problem getting about a week ago diagnosed with a prepatellar bursitis status post I&D and cultures. On today's evaluation that is 02/08/2025,the patient remains to be afebrile, patient is on room air not requiring supplemental oxygen and denies any shortness of breath no chest pain or cough.Patient denies having any nausea or vomiting, no abdominal pain and no diarrhea has been reported, pain to the right knee is currently controlled. Patient white count is 5.68, creatinine 0.9 cultures are currently pending Objective - Vital Signs Vital signs: Vital Signs Temp 98.5 F 02/08/25 07:14 Pulse 60 02/08/25 07:14 Resp 18 02/08/25 07:14 BP 134/71 02/08/25 07:14 Pulse Ox 98 02/08/25 07:14 FiO2 Intake & Output 02/07/25 02/08/25 02/08/25 18:59 06:59 18:59 Other: Voiding Method Toilet Toilet # Voids 1 2 # Bowel Movements 1 - Exam GENERAL DESCRIPTION: An elderly male up in a chair in no distress RESPIRATORY SYSTEM: Unlabored breathing , decreased breath sounds at bases HEART: S1 S2 regular rate and rhythm , ABDOMEN: Soft , no tenderness EXTREMITIES: Right knee is currently dressed no drainage - Labs CBC & Chem 7: 02/08/25 03:35 02/08/25 03:35 Labs: Abnormal Lab Results - Last 24 Hours (Table) 02/08/25 Range/Units 03:35 RBC 4.33 L (4.40-5.60) X 10*6/uL Hgb 12.8 L (13.0-17.0) g/dL Microbiology - Last 24 Hours (Table) 02/06/25 13:40 Gram Stain - Final Knee - Right Wound Culture - Final 02/06/25 13:38 Gram Stain - Final Knee - Right Wound Culture - Final Assessment and Plan (1) Failure of outpatient treatment Current Visit: No Status: Acute Code(s): Z78.9 - OTHER SPECIFIED HEALTH STATUS SNOMED Code(s): 230976915 (2) Septic prepatellar bursitis of right knee Current Visit: No Status: Acute Code(s): M71.161 - OTHER INFECTIVE BURSITIS, RIGHT KNEE SNOMED Code(s): 6352796483223259 Plan: 1patient presented to hospital with right knee pain swelling redness and drainage in this patient who did have a previous history of right knee septic bursitis that was in June 2020 for culture at that time were positive for Enterococcus faecalis and MSSA treated with IV antibiotic therapy now with recurrent bursitis status post I&D however the operative report did not mention any extension down to the knee. 2patient cultures currently pending we will treat with Unasyn and vancomycin while waiting for the culture to finalize to determine discharge antibiotics Dictation was produced using [employer] dictation software. please excuse any grammatical, word or spelling errors. Time with Patient: Less than 30
--- NOTE | 2025-02-08 16:43 | P.PN ---
Subjective Progress Note Date: 02/08/25 Hospital course: Patient is a very pleasant 69-year-old male with a past medical history of Parkinson's disease, hypertension, basal cell carcinoma status post surgical removal, and obstructive sleep apnea CPAP dependent nightly. He is admitted under orthopedic surgery team and is status post incision and drainage with irrigation and debridement of right knee secondary to recurrent septic prepatellar bursitis. Surgical procedure was completed by Dr. Weeks. We were consulted for medical management throughout hospitalization. Physical exam: Patient was seen and fully evaluated at bedside this morning. He is postoperative day 2 and was sitting up in the chair at bedside. Patient reports feeling good this morning and states pain in his right knee has mostly resolved and currently rating 1-2 out of 10. He denies having any other complaints including nausea, vomiting, headache, lightheadedness, dizziness, chest pain, palpitations, shortness of breath, or experiencing any numbness or focal weakness in his extremities. Vital signs reviewed and stable. Gener.al: Nontoxic, no distress and appears stated age. Derm: Skin warm and dry, normal coloration for ethnicity. Head: Atraumatic, normocephalic and symmetric. Eyes: EOM's intact, no lid lag, and anicteric sclera Mouth: no lip lesions, mucus membranes moist Cardiovascular: regular rate and rhythm with normal S1S2, no murmur, positive posterior tibial pulses bilaterally, and cap refill < 2 seconds. Lungs: Respirations even, regular, and unlabored on room air. Lungs CTA bilaterally, no rhonchi, no rales, no wheezing, and no accessory muscle usage. Abdominal: soft, nontender to palpation, no guarding, no appreciable organom egaly Ext: No gross muscle atrophy, no edema, no contractures. Movement and sensation intact. Postsurgical dressing and Jason wrap in place to right knee. Neuro: Speech clear, face symmetrical and CN II-XII grossly intact with no noted focal neuro deficits. Patient with upper extremity resting tremors and facial tremors secondary to Parkinson's. Psych: Alert and oriented to person, place, time, and situation. Appropriate and pleasant affect. Assessment and Plan of Care: Right knee recurrent septic prepatellar bursitis Status post incision and drainage with debridement and irrigation of right knee -Patient is status post incision and drainage with debridement and irrigation. -Gram stain showing no growth after 48 hours, preliminary wound cultures showing no anaerobes isolated to date. -Continue IV antibiotics with Unasyn 3 g every 6 hours and vancomycin 1750 mg every 12 hours with close monitoring of renal function and vancomycin trough for any signs of vancomycin associated renal toxicity -Infectious disease following, discussed plan of care with Dr. Farley. -Continue symptomatic care and pain management. -Fall precautions -Wound/dressing management, DVT prophylaxis, weightbearing, and PT/OT per primary admitting orthopedic surgery team. Parkinson's disease -Continue carbidopa levodopa 25-250 mg tablets 4 times daily along with entacapone 200 mg 4 times daily. -Provide safe and supportive care and assistance as needed. -Maintain fall precautions. Hypertension -Continue daily medication regimen with hydrochlorothiazide 12.5 mg nightly and lisinopril 40 mg nightly. Obstructive sleep apnea -Continue CPAP nightly and while napping. Data and imaging reviewed: Morning labs reviewed. Gram stain showing no growth after 48 hours, preliminary wound cultures showing no anaerobes isolated to date. CBC showing stable normocytic anemia with hemoglobin of 12.8. BMP unremarkable. Blood glucose 99. Magnesium 2.2. Vital signs reviewed. Blood pressure 134/71, heart rate 60, respiratory rate 18, temp 98.5 F, and SpO2 of 98% on room air Thank you for allowing us to participate in the care of this pleasant patient. Do not hesitate to contact us with questions. Someone can be reached from the [facility] hospitalist group all hours of the day at [phone] or via perfect serve. Patient was seen independently by Nurse Pracitioner. This document was prepared using [employer] dictation software. Please allow for errors in experimental machinist, while rare they do occur. Wellington Pyle NP rendered care for this patient independently, reviewed the findings and plan as documented in the note above and agree with plan. I did not physically speak with or examine the patient on this date. Objective - Vital Signs Vital signs: Vital Signs Temp 98.5 F 02/08/25 07:14 Pulse 60 02/08/25 07:14 Resp 18 02/08/25 07:14 BP 134/71 02/08/25 07:14 Pulse Ox 98 02/08/25 07:14 FiO2 Intake & Output 02/07/25 02/08/25 02/08/25 18:59 06:59 18:59 Other: Voiding Method Toilet Toilet # Voids 1 2 # Bowel Movements 1 - Labs CBC & Chem 7: 02/08/25 03:35 02/08/25 03:35 Labs: Abnormal Lab Results - Last 24 Hours (Table) 02/07/25 Range/Units 09:28 BUN 22 H (9-20) mg/dL Glucose 121 H (74-99) mg/dL Microbiology - Last 24 Hours (Table) 02/06/25 13:40 Gram Stain - Final Knee - Right Wound Culture - Final 02/06/25 13:38 Gram Stain - Final Knee - Right Wound Culture - Final
[2025-02-08] MEDS: Acetaminophen-Codeine 300-30mg TAB PO PRN (16:47)
[2025-02-08] MEDS: PRAMIPEXOLE 0.5 MG TAB PO SCH (16:49)
[2025-02-09 03:10] VITALS: TEMP 97.8
[2025-02-09 06:14] LABS: African American GFR (CKD) >90 (>60 ml/min/1.73 sqM); Non-African American GFR(CKD) >90 (>60 ml/min/1.73 sqM)
[2025-02-09 08:32] VITALS: BP 144/72; PULSE 58; RESP 18
--- NOTE | 2025-02-09 10:48 | P.PN ---
Subjective Progress Note Date: 02/09/25 Principal diagnosis: Recurrent right knee septic prepatellar bursitis Patient was seen at bedside this morning sitting up in chair with dressing present over right knee. Patient says he has been walking under his own power since surgery without issue. He says he has been urinating on his own without problem. No bowel movement yet. Patient denies any other issues at this time Objective - Vital Signs Vital signs: Vital Signs Temp 97.8 F 02/09/25 07:05 Pulse 58 L 02/09/25 07:05 Resp 18 02/09/25 07:05 BP 144/72 02/09/25 07:05 Pulse Ox 97 02/09/25 07:05 FiO2 Intake & Output 02/08/25 02/09/25 02/09/25 18:59 06:59 18:59 Intake Total 700 Balance 700 Intake: Intake, IV Titration 700 Amount Ampicillin-Sulbactam 3 gm 200 In Sodium Chloride 0.9% 100 ml @ 200 mls/hr IVPB Q6HR [facility] Rx#:[id number] Vancomycin 1,750 mg In 500 Sodium Chloride 0.9% 500 ml 500 ml @ 167 mls/hr IVPB Q12H [facility] Rx#: [id number] Other: # Voids 2 - Exam Right knee: Incision is clean, dry, and intact. The sutures are in good condition. There is minimal soft tissue swelling and ecchymosis surrounding the medial and lateral aspects of the incision. Calf is soft, no tenderness with palpation. Plantar flexion, dorsiflexion, EHL, FHL are intact. Sensory exam to light touch throughout the extremity is intact, dorsal pedis pulses 2+. - Labs CBC & Chem 7: 02/08/25 03:35 02/09/25 05:16 Labs: Microbiology - Last 24 Hours (Table) 02/06/25 13:40 Anaerobic Culture - Preliminary Knee - Right 02/06/25 13:40 Gram Stain - Final Knee - Right Wound Culture - Final 02/06/25 13:38 Gram Stain - Final Knee - Right Wound Culture - Final Assessment and Plan Assessment: 1. Recurrent right knee septic prepatellar bursitis - Postop day 3 status post Incision and drainage/irrigation and debridement right knee septic prepatellar bursitis Plan: 1. Recurrent right knee septic prepatellar bursitis - Incision and drainage/irrigation and debridement right knee septic prepatellar bursitis surgery performed 02/06/2025. Patient stable at bedside this morning with kerlix bandage present over knee. Incision appears to be clean, dry, intact. Assess dressing daily. Change as needed. Weightbearing as tolerated with walker as needed. Oral pain medication. Awaiting ID recs. Cultures pending at this time. Negative thus far. Gram stain negative. IV abx per ID. We will continue to follow patient during stay in hospital. [place] for discharge home later today pending final cultures and ID rec for abx. 2. Appreciate medical management 3. Pain management - tylenol with codeine 4. DVT prophylaxis - aspirin 5. GI prophylaxis - senna 6. PT/OT -weightbearing as tolerated with walker 7. Encourage incentive spirometer use 8. Discharge planning - home today pending ID determining discharge Abx Time with Patient: Less than 30
--- NOTE | 2025-02-09 11:00 | P.DS ---
Providers Date of admission: 02/06/2025 Expected date of discharge: 02/09/25 Attending physician: Camilo Weeks Consults: 02/06/25 14:51 Consult Physician Routine Consulting Provider: Tierra Farley Consult Reason/Comments: ID management s/p I&D right knee septic prepatellar bursitis Do you want consulting provider notified?: Yes 02/06/25 18:29 Consult Physician Routine Consulting Provider: Loretta Carter Consult Reason/Comments: Medical management Do you want consulting provider notified?: Already Contacted [facility] Course: Date of admission: 02/06/2025 Date of discharge: 02/09/2025 Admission diagnosis: Recurrent right knee septic prepatellar bursitis Discharge diagnosis: Same Attending physician: Dr. Weeks Surgical procedures: Incision and drainage/irrigation and debridement right knee septic prepatellar bursitis Brief history: Patient is a 69-year-old male with a history of recurrent right knee septic prepatellar bursitis. At this point patient has failed conservative treatment measures and has opted to proceed with a elective incision and drainage/irrigation debridement right knee septic prepatellar bursitis. Hospital course: Details of patient's surgery can be found in operative report. Patient tolerated the procedure well and was subsequently transported to orthopedic floor. Patient's orthopeidc and medical care was provided daily. Patient had daily laboratory tests performed for evaluation of overall blood counts. Patient had daily physical therapy to include strengthening range of motion as well as education with walker ambulation. Patient was noted to have a relatively uneventful postoperative course. Patient reported satisfactory pain control with oral pain medications by postoperative day 3. Patient showed satisfactory progress with physical therapy. Patient moved steadily through the program and had no difficulty meeting the goals by postoperative day 3. Given patient's otherwise satisfactory course and having met physical therapy goals, plan is to discharge patient home on postoperative day 3. Discharge condition/disposition: Patient will be discharged home in stable condition. Discharge medications: Instructions are given on resumption of patient's normal daily medications per primary care recommendation, in addition patient will be prescribed Tylenol with codeine; senna; antibiotic per infectious disease. Discharge instructions: 1. Wound care and infection precautions, keep incision dry and covered while showering, no lotions, creams, moisturizers. No soaking, tubs, pools, hottubs. Do not scrub over the incision. 2. Weight-bear as tolerated with walker / cane until follow-up. 3. Ice and elevate when necessary. Do not exceed 20 minutes per hour with ice pack. 4. Utilize compression sleeve until seen at first follow up appointment. 5. Visiting nursing care. 6. Home physical therapy. 7. Pain meds and anticoagulants per prescription. 8. Pain medication has potential to cause constipation. Increase oral fluid and fiber intake. Contact primary care provider if you have not had a bowel movement within 48 hours after discharge 9. No anti-inflammatory medication until discussed at first post operative visit, this including Motrin, Aleve, Mobic, Diclofenac. 10. Follow up in office at 2 weeks postop with Suleiman Olmedo PA-C / Xavier Lion PA-C 11. Follow up with your primary care doctor 7-10 days after discharge. 12. Contact [facility] with any questions, . Assessment: Recurrent right knee septic prepatellar bursitis Procedures: Incision and drainage/irrigation and debridement right knee septic prepatellar bursitis Patient Condition at Discharge: Good Plan - Discharge Summary Discharge Rx Participant: Yes New Discharge Prescriptions: New Sennosides/Docusate Sodium [Senna Plus 8.6-50 mg Softgel] 1 each PO DAILY #20 capsule Acetaminophen-Codeine 300-30mg [Tylenol w/codeine #3] 1 tab PO Q8H PRN #16 tablet PRN Reason: Pain No Action lisinopriL 40 mg PO HS@2200 Citalopram Hydrobromide [CeleXA] 40 mg PO HS@2200 hydroCHLOROthiazide 12.5 mg PO HS@2200 ALPRAZolam [Xanax] 0.5 mg PO BID PRN PRN Reason: Anxiety oxyBUTYnin chloride [oxyBUTYnin chloride ER] 5 mg PO HS Famotidine [Pepcid] 40 mg PO HS Carbidopa/Levodopa [Carbidopa/Levodopa 25-250 Tab] 1 tab PO QID Cholecalciferol [Vitamin D3 (25 Mcg = 1000 Iu)] 250 mcg PO DAILY Doxycycline (Unknown Dose) 1 tab PO BID Pramipexole [Mirapex] 0.5 mg PO TID Entacapone [Comtan] 200 mg PO QID L.acidoph,Paracasei, B.lactis [Probiotic] 2 each PO DAILY Garlic 2,000 mg PO DAILY Discharge Medication List ALPRAZolam [Xanax] 0.5 mg PO BID PRN 10/11/20 [History] Citalopram Hydrobromide [CeleXA] 40 mg PO HS@219910/11/20 [History] hydroCHLOROthiazide 12.5 mg PO HS@219910/11/20 [History] lisinopriL 40 mg PO HS@219910/11/20 [History] Carbidopa/Levodopa [Carbidopa/Levodopa 25-250 Tab] 1 tab PO QID 06/20/24 [History] Cholecalciferol [Vitamin D3 (25 Mcg = 1000 Iu)] 250 mcg PO DAILY 06/20/24 [History] Entacapone [Comtan] 200 mg PO QID 06/20/24 [History] Famotidine [Pepcid] 40 mg PO HS 06/20/24 [History] Garlic 2,000 mg PO DAILY 06/20/24 [History] L.acidoph,Paracasei, B.lactis [Probiotic] 2 each PO DAILY 06/20/24 [History] Pramipexole [Mirapex] 0.5 mg PO TID 06/20/24 [History] oxyBUTYnin chloride [oxyBUTYnin chloride ER] 5 mg PO HS 06/20/24 [History] Doxycycline (Unknown Dose) 1 tab PO BID 02/05/25 [History] Acetaminophen-Codeine 300-30mg [Tylenol w/codeine #3] 1 tab PO Q8H PRN #16 tablet 02/09/25 [Rx] Sennosides/Docusate Sodium [Senna Plus 8.6-50 mg Softgel] 1 each PO DAILY #20 capsule 02/09/25 [Rx] Follow up Appointment(s)/Referral(s): Xavier Lion, YOLY [PHYSICIAN REVENUE ACCOUNTING MANAGER] - 2 Weeks Activity/Diet/Wound Care/Special Instructions: Orthopedic Discharge Instructions: 1. Wound care and infection precautions, keep incision dry and covered while showering, no lotions, creams, moisturizers. No soaking, pools, hot tubs. Do not scrub over incision. 2. Weight-bear as tolerated with walker / cane until follow-up. 3. Ice and elevate when necessary. Do not exceed 20 minutes per hour with ice pack. 4. Utilize compression sleeve until seen at first follow up appointment. 5. Pain meds and anticoagulants per prescription. 6. Pain medication has potential to cause constipation. Increase oral fluid and fiber intake. Contact primary care provider if you have not had a bowel movement within 48 hours after discharge. 7. No anti-inflammatory medication until discussed at first post operative visit, this including Motrin, Aleve, Mobic, Diclofenac. 8. Follow up in office at 2 weeks postop with Suleiman Olmedo PA-C / Xavier Lion PA-C 9. Follow up with your primary care doctor 7-10 days after discharge. 10. Contact [facility] with any questions, . Keep incision clean, dry, intact. While showering, cover fusion tape with Saran wrap. Keep fusion tape on until follow-up appoint in office in 2 weeks Discharge Disposition: HOME SELF-CARE
--- NOTE | 2025-02-09 14:49 | P.PN ---
Subjective Progress Note Date: 02/09/25 Hospital course: Patient is a very pleasant 69-year-old male with a past medical history of Parkinson's disease, hypertension, basal cell carcinoma status post surgical removal, and obstructive sleep apnea CPAP dependent nightly. He is admitted under orthopedic surgery team and is status post incision and drainage with irrigation and debridement of right knee secondary to recurrent septic prepatellar bursitis. Surgical procedure was completed by Dr. Weeks. We were consulted for medical management throughout hospitalization. Physical exam: Patient was seen and fully evaluated at bedside this morning. He is postoperative day 3 and was sitting up in the chair at bedside. Patient appears to be doing well. He reports only experiencing intermittent bouts of pain in his right knee. He otherwise denies having any complaints, questions, needs, or concerns. Vital signs reviewed and stable. Gener.al: Nontoxic, no distress and appears stated age. Derm: Skin warm and dry, normal coloration for ethnicity. Head: Atraumatic, normocephalic and symmetric. Eyes: EOM's intact, no lid lag, and anicteric sclera Mouth: no lip lesions, mucus membranes moist Cardiovascular: regular rate and rhythm with normal S1S2, no murmur, positive posterior tibial pulses bilaterally, and cap refill < 2 seconds. Lungs: Respirations even, regular, and unlabored on room air. Lungs CTA bilaterally, no rhonchi, no rales, no wheezing, and no accessory muscle usage. Abdominal: soft, nontender to palpation, no guarding, no appreciable organomegaly Ext: No gross muscle atrophy, no edema, no contractures. Movement and sensation intact. Postsurgical dressing and Jason wrap in place to right knee. Neuro: Speech clear, face symmetrical and CN II-XII grossly intact with no noted focal neuro deficits. Patient with upper extremity resting tremors and facial tremors secondary to Parkinson's. Psych: Alert and oriented to person, place, time, and situation. Appropriate and pleasant affect. Assessment and Plan of Care: Right knee recurrent septic prepatellar bursitis Status post incision and drainage with debridement and irrigation of right knee -Patient is status post incision and drainage with debridement and irrigation. -Gram stain showing no growth after 48 hours, Wound cultures showing no anaero bes isolated to date. -Continue IV antibiotics with Unasyn 3 g every 6 hours and vancomycin 1750 mg every 12 hours with close monitoring of renal function and vancomycin trough for any signs of vancomycin associated renal toxicity -Infectious disease following, reviewed documentation in chart -Continue symptomatic care and pain management. -Fall precautions -Wound/dressing management, DVT prophylaxis, weightbearing, and PT/OT per primary admitting orthopedic surgery team. Parkinson's disease -Continue carbidopa levodopa 25-250 mg tablets 4 times daily along with entacapone 200 mg 4 times daily. -Provide safe and supportive care and assistance as needed. -Maintain fall precautions. Hypertension -Continue daily medication regimen with hydrochlorothiazide 12.5 mg nightly and lisinopril 40 mg nightly. Obstructive sleep apnea -Continue CPAP nightly and while napping. Data and imaging reviewed: Labs reviewed. Gram stain showing no growth after 48 hours, preliminary wound cultures showing no anaerobes isolated to date. CBC showing stable normocytic anemia with hemoglobin of 12.8. BMP unremarkable. Blood glucose 99. Magnesium 2.2. Vital signs reviewed. Blood pressure 144/72, heart rate 58, respiratory rate 18, temp 97.8 F, and SpO2 of 97% on room air Patient is medically optimized for discharge once cleared by infectious disease for oral antibiotics. Discharge orders to be placed by primary admitting orthopedic surgery team. Thank you for allowing us to participate in the care of this pleasant patient. Do not hesitate to contact us with questions. Someone can be reached from the [facility] hospitalist group all hours of the day at [phone] or via [employer]. Patient was seen independently by Nurse Pracitioner. This document was prepared using [employer] dictation software. Please allow for errors in automation architect, while rare they do occur. Wellington Pyle NP rendered care for this patient independently, reviewed the findings and plan as documented in the note above and agree with plan. I did not physically speak with or examine the patient on this date. Objective - Vital Signs Vital signs: Vital Signs Temp 97.8 F 02/09/25 07:05 Pulse 58 L 02/09/25 07:05 Resp 18 02/09/25 07:05 BP 144/72 02/09/25 07:05 Pulse Ox 97 02/09/25 07:05 FiO2 Intake & Output 02/08/25 02/09/25 02/09/25 18:59 06:59 18:59 Intake Total 700 Balance 700 Intake: Intake, IV Titration 700 Amount Ampicillin-Sulbactam 3 gm 200 In Sodium Chloride 0.9% 100 ml @ 200 mls/hr IVPB Q6HR [facility] Rx#:[id number] Vancomycin 1,750 mg In 500 Sodium Chloride 0.9% 500 ml 500 ml @ 167 mls/hr IVPB Q12H [facility] Rx#: [id number] Other: # Voids 2 - Labs CBC & Chem 7: 02/08/25 03:35 02/09/25 05:16 Labs: Abnormal Lab Results - Last 24 Hours (Table) 02/08/25 Range/Units 03:35 RBC 4.33 L (4.40-5.60) X 10*6/uL Hgb 12.8 L (13.0-17.0) g/dL Microbiology - Last 24 Hours (Table) 02/06/25 13:40 Anaerobic Culture - Preliminary Knee - Right 02/06/25 13:40 Gram Stain - Final Knee - Right Wound Culture - Final 02/06/25 13:38 Gram Stain - Final Knee - Right Wound Culture - Final
[2025-02-09] MEDS: VANCOMYCIN TROUGH DUE 1 EACH MISC MISCELLANE ONE (14:59)
--- NOTE | 2025-02-09 14:59 | P.PN ---
Subjective Progress Note Date: 02/09/25 Principal diagnosis: Reason for follow-up is right knee septic prepatellar bursitis Patient is a 69-year-old male with a past medical history significant for GERD/Reflux, Hypertension, Osteoarthritis (OA), Sleep Apnea/CPAP/BIPAP previous history of right knee septic prepatellar bursitis culture that was positive for MSSA and Enterococcus faecalis that was last year still having a problem getting about a week ago diagnosed with a prepatellar bursitis status post I&D and cultures. On today's evaluation that is 02/09/2025, the patient continues to be afebrile, the patient is on room air and breathing comfortably, the Pt denies having any chest pain or cough, the patient denies having any abdominal pain no vomiting or any diarrhea, pain to the right knee and is currently controlled feeling better. Patient did have creatinine 0.68 culture have been negative so far Objective - Vital Signs Vital signs: Vital Signs Temp 97.8 F 02/09/25 07:05 Pulse 58 L 02/09/25 07:05 Resp 18 02/09/25 07:05 BP 144/72 02/09/25 07:05 Pulse Ox 97 02/09/25 07:05 FiO2 Intake & Output 02/08/25 02/09/25 02/09/25 18:59 06:59 18:59 Intake Total 700 Balance 700 Intake: Intake, IV Titration 700 Amount Ampicillin-Sulbactam 3 gm 200 In Sodium Chloride 0.9% 100 ml @ 200 mls/hr IVPB Q6HR [facility] Rx#:[id number] Vancomycin 1,750 mg In 500 Sodium Chloride 0.9% 500 ml 500 ml @ 167 mls/hr IVPB Q12H [facility] Rx#: [id number] Other: # Voids 2 - Exam GENERAL DESCRIPTION: An elderly male up in a chair in no distress RESPIRATORY SYSTEM: Unlabored breathing , decreased breath sounds at bases HEART: S1 S2 regular rate and rhythm , ABDOMEN: Soft , no tenderness EXTREMITIES: Right knee is currently dressed no drainage - Labs CBC & Chem 7: 02/08/25 03:35 02/09/25 05:16 Labs: Microbiology - Last 24 Hours (Table) 02/06/25 13:40 Anaerobic Culture - Preliminary Knee - Right 02/06/25 13:40 Gram Stain - Final Knee - Right Wound Culture - Final Assessment and Plan (1) Failure of outpatient treatment Status: Acute Code(s): Z78.9 - OTHER SPECIFIED HEALTH STATUS SNOMED Code(s): 151776933 (2) Septic prepatellar bursitis of right knee Status: Acute Code(s): M71.161 - OTHER INFECTIVE BURSITIS, RIGHT KNEE SNOMED Code(s): 0699383822630337 Plan: 1patient presented to hospital with right knee pain swelling redness and drainage in this patient who did have a previous history of right knee septic bursitis that was in June 2020 for culture at that time were positive for Enterococcus faecalis and MSSA treated with IV antibiotic therapy now with recurrent bursitis status post I&D however the operative report did not mention any extension down to the knee. 2patient cultures has been negative we will recommend a 2-week course of oral Augmentin on the basis of previous cultures, on discharge and close outpatient follow-up prescription sent to the pharmacy Dictation was produced using [email or web address] dictation software. please excuse any gra mmatical, word or spelling errors. Time with Patient: Less than 30
== END 2025-02-09 16:50 | disposition home or self-care (01) ==
LOC: OR 13:35 → 4SSUR 14:48 → OR 02-09 16:50
PROVIDERS: ATTEND Orthopaedic Surgery
DX: M71.161 Other infective bursitis, right knee (principal); G47.33 Obstructive sleep apnea (adult) (pediatric); G20.A1 Parkinson's disease without dyskinesia, without mention of fluctuations; I10 Essential (primary) hypertension; F41.9 Anxiety disorder, unspecified; D64.9 Anemia, unspecified; M19.90 Unspecified osteoarthritis, unspecified site; F17.210 Nicotine dependence, cigarettes, uncomplicated; Z79.899 Other long term (current) drug therapy; Z85.828 Personal history of other malignant neoplasm of skin; Z90.49 Acquired absence of other specified parts of digestive tract; Z98.890 Other specified postprocedural states
CPT/HCPCS: 27301; 80048 ×2; 82565; 83735; 85025; 85027; 87070; 87205; 87075; J2250; J3370 ×2; J0330; J1100; J0690 ×3; J2405; J2003; J3010; J0295 ×2; J2704; J1171; J2371